=== PATIENT | female | born 1965 | race Two or more races ===

== ENCOUNTER 2020-07-30 22:58 | Inpatient (IN) | payer OTHER ==
[~2020-07-30] VITALS: Ht 162.6 cm; Wt 98.3 kg
[2020-07-31 06:18] LABS: Basophils # (auto) 0 10 ^3/uL (0-0.2); Basophils % (auto) 0.2 % (0.0-2.0); Eosinophils # (auto) 0 10 ^3/uL (0-0.8); Hematocrit 43.2 % (36.0-46.0); Hemoglobin 14.3 g/dL (12.2-16.2); Lymphocytes # (auto) 0.9 10 ^3/uL (0.4-5.4); Lymphocytes % (auto) 17.7 % (10.0-50.0); Mean Corpuscular Hemoglobin 27.8 pg (28.0-32.0); Mean Corpuscular Hgb Conc. 33.2 g/dL (32.0-36.0); Mean Corpuscular Volume 83.9 fL (80.0-100.0); Monocytes # (auto) 0.4 10 ^3/uL (0-1.3); Monocytes % (auto) 8.2 % (0.0-12.0); Neutrophils # (auto) 3.7 10 ^3/uL (1.6-8.6); Neutrophils % (auto) 73.9 % (37.0-80.0); Platelet Count (auto) 273 10^3/uL (140-450); Red Blood Cells 5.15 10^6/uL (4.0-5.20); Red Cell Distribution Width 14.8 % (11.8-14.3); White Blood Cell 5.1 10^3/uL (4.4-10.8)
[2020-07-31 06:39] LABS: Chloride 108 mmol/L (98-107); Potassium 3.3 mmol/L (3.5-5.1); Sodium 138 mmol/L (136-145)
[2020-07-31 06:49] LABS: Alanine Aminotransferase 29 U/L (13-56); Albumin 2.8 g/dL (3.4-5.0); Alkaline Phosphatase 88 U/L (45-117); Anion Gap 7 (5-15); Aspartate Aminotransferase 40 U/L (15-37); BUN/Creatinine Ratio 22.2; Bilirubin, Total 0.4 mg/dL (0.2-1.0); Blood Urea Nitrogen 14 mg/dL (7-18); Calcium 8.8 mg/dL (8.5-10.1); Carbon Dioxide 23 mmol/L (21-32); GFR African American 125 mL/min; GFR Non-African American 104 mL/min; Glucose 143 mg/dL (74-106); Total Protein 8.1 g/dL (6.4-8.2)
[2020-07-31] MEDS ORDERED: DOXYCYCLINE 100MG/250ML 250 ML IV ONE (07:30)
[2020-07-31] MEDS ORDERED: DEXTROSE (50%) 50ML SYRG IV PRN (09:30)
[2020-07-31] MEDS ORDERED: NITROGLYCERIN 0.4 MG SL TAB SL PRN (09:30)
[2020-07-31] MEDS ORDERED: MORPHINE SULF INJ 2 MG/ML SYRINGE 1ML IV PRN ×2 (09:30)
[2020-07-31] MEDS ORDERED: REMDESIVIR PER PHARMACY 0 ML IV SCH (09:30)
[2020-07-31] MEDS ORDERED: POTASSIUM CHL 20 Meq TABLET PO ONE (09:45)
[2020-07-31] MEDS: BUDESONIDE (INHALATION) 180 MCG IH IN SCH ×2 (10:00→21:13)
[2020-07-31] MEDS: CHOLECALCIFEROL (VITD3) 2,000 UNIT CAP PO SCH (10:00)
[2020-07-31] MEDS: DexAMETHasone SOD PHOS 10MG/1ML VIAL INJ IV SCH (10:43)
[2020-07-31] MEDS: FUROSEMIDE 20 MG/2 ML VIAL IV SCH (10:43)
[2020-07-31] MEDS: FAMOTIDINE 20 MG TAB PO SCH (10:44)
[2020-07-31] MEDS: AZITHROMYCIN 500MG/ 250ML 250 ML IV SCH (10:44)
[2020-07-31] MEDS: ENOXAPARIN SOD 40 MG/0.4 ML SYRINGE SC SCH ×2 (10:44→23:23)
[2020-07-31] MEDS: ZINC SULFATE 220mg CAP or TAB PO SCH (10:44)
[2020-07-31] MEDS: ASCORBIC ACID 1,000 MG TAB PO SCH (10:44)
[2020-07-31 10:56] LABS: CRP High Sensitivity 14.3 mg/dL (< 0.3)
[2020-07-31] MEDS: InsuLIN REG 1unit/0.01ml Soln (100units/ml) SC SCH ×3 (11:30→23:33)
[2020-07-31] MEDS: ACCU-CHEK COMFORT CURVE STRIP VI SCH ×3 (11:30→23:23)
[2020-07-31 13:57] LABS: Urine Bacteria MANY /hpf (None Seen); Urine Blood Negative /uL (Negative); Urine Mucus FEW (None Seen); Urine Specific Gravity 1.017 (1.001-1.035); Urine WBC 4 /hpf (0 - 5)
[2020-07-31] MEDS ORDERED: REMDESIVIR 200 MG in NS 210ml LOADING DOSE ADULT IV ONE (15:00)
[2020-07-31] MEDS: ALBUTEROL SULF HFA 90MCG INH 200DOSE IN PRN (21:13)
[2020-08-01 06:57] LABS: Basophils # (auto) 0 10 ^3/uL (0-0.2); Basophils % (auto) 0.2 % (0.0-2.0); Eosinophils # (auto) 0 10 ^3/uL (0-0.8); Hematocrit 43.2 % (36.0-46.0); Hemoglobin 14.4 g/dL (12.2-16.2); Lymphocytes % (auto) 15.9 % (10.0-50.0); Mean Corpuscular Hemoglobin 27.8 pg (28.0-32.0); Mean Corpuscular Hgb Conc. 33.2 g/dL (32.0-36.0); Mean Corpuscular Volume 83.6 fL (80.0-100.0); Monocytes # (auto) 0.5 10 ^3/uL (0-1.3); Monocytes % (auto) 8.4 % (0.0-12.0); Neutrophils # (auto) 4.9 10 ^3/uL (1.6-8.6); Neutrophils % (auto) 75.5 % (37.0-80.0); Nucleated Red Blood Cells % 0.4 %; Platelet Count (auto) 325 10^3/uL (140-450); Red Blood Cells 5.17 10^6/uL (4.0-5.20); Red Cell Distribution Width 14.6 % (11.8-14.3); White Blood Cell 6.5 10^3/uL (4.4-10.8)
[2020-08-01 07:00] LABS: Albumin 2.6 g/dL (3.4-5.0); Potassium 3.9 mmol/L (3.5-5.1)
[2020-08-01] MEDS: InsuLIN REG 1unit/0.01ml Soln (100units/ml) SC SCH ×4 (07:00→22:00)
[2020-08-01 07:04] LABS: BUN/Creatinine Ratio 33.3; Bilirubin, Total 0.5 mg/dL (0.2-1.0); Total Protein 7.8 g/dL (6.4-8.2)
[2020-08-01] MEDS: ACCU-CHEK COMFORT CURVE STRIP VI SCH ×4 (07:09→22:01)
[2020-08-01] MEDS: BUDESONIDE (INHALATION) 180 MCG IH IN SCH ×2 (07:46→21:57)
[2020-08-01] MEDS: cefTRIAXone 1GM/50ML D5W 50 ML IV SCH (09:26)
[2020-08-01] MEDS: ASCORBIC ACID 1,000 MG TAB PO SCH (10:00)
[2020-08-01] MEDS: ENOXAPARIN SOD 40 MG/0.4 ML SYRINGE SC SCH ×2 (10:00→22:00)
[2020-08-01] MEDS: DexAMETHasone SOD PHOS 10MG/1ML VIAL INJ IV SCH (10:00)
[2020-08-01] MEDS: ZINC SULFATE 220mg CAP or TAB PO SCH (10:00)
[2020-08-01] MEDS: AZITHROMYCIN 500MG/ 250ML 250 ML IV SCH (10:00)
[2020-08-01] MEDS: FAMOTIDINE 20 MG TAB PO SCH (10:00)
[2020-08-01] MEDS: FUROSEMIDE 20 MG/2 ML VIAL IV SCH (10:00)
[2020-08-01] MEDS: CHOLECALCIFEROL (VITD3) 2,000 UNIT CAP PO SCH (10:00)
[2020-08-01] MEDS: REMDESIVIR 100 MG in SODIUM CHL 0.9% 250 ML IV SCH (17:55)
[2020-08-01] MEDS ORDERED: POTASSIUM CHL 20 Meq TABLET PO ONE (20:30)
[2020-08-01] MEDS ORDERED: cefTRIAXone 1GM/50ML D5W 50 ML IV ONE (20:30)
[2020-08-01 21:00] VITALS: BP 120/89
[2020-08-01] MEDS: ALBUTEROL SULF HFA 90MCG INH 200DOSE IN PRN (21:57)
[2020-08-02 04:30] VITALS: BP 112/69
[2020-08-02] MEDS: ACCU-CHEK COMFORT CURVE STRIP VI SCH ×4 (06:07→22:00)
[2020-08-02] MEDS: InsuLIN REG 1unit/0.01ml Soln (100units/ml) SC SCH ×4 (06:07→22:00)
[2020-08-02 06:20] LABS: Potassium 4.2 mmol/L (3.5-5.1)
[2020-08-02 06:46] LABS: Albumin 2.6 g/dL (3.4-5.0); BUN/Creatinine Ratio 37.3; Bilirubin, Total 0.5 mg/dL (0.2-1.0); Calcium 9.3 mg/dL (8.5-10.1); Total Protein 7.6 g/dL (6.4-8.2)
[2020-08-02] MEDS: ALBUTEROL SULF HFA 90MCG INH 200DOSE IN PRN ×2 (07:46→07:48)
[2020-08-02] MEDS: BUDESONIDE (INHALATION) 180 MCG IH IN SCH ×2 (07:48→22:00)
[2020-08-02 09:00] VITALS: BP 119/70
[2020-08-02] MEDS ORDERED: cefTRIAXone 1GM/50ML D5W 50 ML IV SCH (09:00)
[2020-08-02] MEDS: CHOLECALCIFEROL (VITD3) 2,000 UNIT CAP PO SCH (10:00)
[2020-08-02] MEDS: FAMOTIDINE 20 MG TAB PO SCH (10:00)
[2020-08-02] MEDS: AZITHROMYCIN 500MG/ 250ML 250 ML IV SCH (10:00)
[2020-08-02] MEDS: ZINC SULFATE 220mg CAP or TAB PO SCH (10:00)
[2020-08-02] MEDS: ASCORBIC ACID 1,000 MG TAB PO SCH (10:00)
[2020-08-02] MEDS: FUROSEMIDE 20 MG/2 ML VIAL IV SCH (10:00)
[2020-08-02] MEDS: ENOXAPARIN SOD 40 MG/0.4 ML SYRINGE SC SCH ×2 (11:03→22:00)
[2020-08-02] MEDS: DexAMETHasone SOD PHOS 10MG/1ML VIAL INJ IV SCH (11:04)
[2020-08-02] MEDS: cefTRIAXone 1GM/50ML D5W 50 ML IV SCH (11:04)
[2020-08-02] MEDS: POTASSIUM CHL 20 Meq TABLET PO SCH (11:05)
[2020-08-02 13:00] VITALS: BP 131/76
[2020-08-02] MEDS: REMDESIVIR 100 MG in SODIUM CHL 0.9% 250 ML IV SCH (15:00)
[2020-08-02 16:43] VITALS: BP_SYST 108
[2020-08-02 22:00] VITALS: BP 121/77
[2020-08-03 05:00] VITALS: BP 119/49
[2020-08-03] MEDS: InsuLIN REG 1unit/0.01ml Soln (100units/ml) SC SCH ×4 (05:36→21:03)
[2020-08-03] MEDS: ACCU-CHEK COMFORT CURVE STRIP VI SCH ×4 (05:37→20:57)
[2020-08-03] MEDS: ALBUTEROL SULF HFA 90MCG INH 200DOSE IN PRN (07:13)
[2020-08-03] MEDS: BUDESONIDE (INHALATION) 180 MCG IH IN SCH ×2 (07:13→20:10)
[2020-08-03 07:23] LABS: Potassium 3.8 mmol/L (3.5-5.1)
[2020-08-03 07:31] LABS: Albumin 2.5 g/dL (3.4-5.0); BUN/Creatinine Ratio 38.2; Bilirubin, Total 0.6 mg/dL (0.2-1.0); Calcium 9.3 mg/dL (8.5-10.1); Total Protein 7.2 g/dL (6.4-8.2)
[2020-08-03 09:00] VITALS: BP 116/63
[2020-08-03] MEDS: cefTRIAXone 1GM/50ML D5W 50 ML IV SCH (09:22)
[2020-08-03] MEDS: DexAMETHasone SOD PHOS 10MG/1ML VIAL INJ IV SCH (09:22)
[2020-08-03] MEDS: AZITHROMYCIN 500MG/ 250ML 250 ML IV SCH (09:23)
[2020-08-03] MEDS: FUROSEMIDE 20 MG/2 ML VIAL IV SCH (09:23)
[2020-08-03] MEDS: ZINC SULFATE 220mg CAP or TAB PO SCH (09:23)
[2020-08-03] MEDS: CHOLECALCIFEROL (VITD3) 2,000 UNIT CAP PO SCH (09:24)
[2020-08-03] MEDS: ASCORBIC ACID 1,000 MG TAB PO SCH (09:24)
[2020-08-03] MEDS: POTASSIUM CHL 20 Meq TABLET PO SCH (09:24)
[2020-08-03] MEDS: PANTOPRAZOLE 40 MG TAB PO SCH (09:24)
[2020-08-03] MEDS: ENOXAPARIN SOD 40 MG/0.4 ML SYRINGE SC SCH ×2 (09:25→21:03)
[2020-08-03] MEDS: ONDANSETRON HCL 4 MG/2 ML VIAL IV PRN (09:43)
[2020-08-03 13:00] VITALS: BP 116/65
[2020-08-03] MEDS: REMDESIVIR 100 MG in SODIUM CHL 0.9% 250 ML IV SCH (15:00)
[2020-08-03 17:00] VITALS: BP 130/76
[2020-08-03 20:00] VITALS: BP 131/73
[2020-08-04] VITALS (9 sets, daily range): BP systolic 105–149; BP diastolic 60–78
[2020-08-04] MEDS: ALBUTEROL SULF HFA 90MCG INH 200DOSE IN PRN (01:15)
[2020-08-04] MEDS: ACCU-CHEK COMFORT CURVE STRIP VI SCH ×4 (06:29→22:19)
[2020-08-04] MEDS: InsuLIN REG 1unit/0.01ml Soln (100units/ml) SC SCH ×4 (06:35→22:42)
[2020-08-04] MEDS: BUDESONIDE (INHALATION) 180 MCG IH IN SCH ×2 (07:35→22:00)
[2020-08-04] MEDS: DexAMETHasone SOD PHOS 10MG/1ML VIAL INJ IV SCH (09:44)
[2020-08-04] MEDS: cefTRIAXone 1GM/50ML D5W 50 ML IV SCH (09:44)
[2020-08-04] MEDS: ZINC SULFATE 220mg CAP or TAB PO SCH (09:45)
[2020-08-04] MEDS: FUROSEMIDE 20 MG/2 ML VIAL IV SCH (09:45)
[2020-08-04] MEDS: AZITHROMYCIN 500MG/ 250ML 250 ML IV SCH (09:45)
[2020-08-04] MEDS: PANTOPRAZOLE 40 MG TAB PO SCH (09:46)
[2020-08-04] MEDS: POTASSIUM CHL 20 Meq TABLET PO SCH (09:46)
[2020-08-04] MEDS: ASCORBIC ACID 1,000 MG TAB PO SCH (09:46)
[2020-08-04] MEDS: ENOXAPARIN SOD 40 MG/0.4 ML SYRINGE SC SCH ×2 (09:46→22:21)
[2020-08-04] MEDS: CHOLECALCIFEROL (VITD3) 2,000 UNIT CAP PO SCH (09:46)
[2020-08-04] MEDS: ONDANSETRON HCL 4 MG/2 ML VIAL IV PRN (11:00)
[2020-08-04 14:08] LABS: Potassium 3.6 mmol/L (3.5-5.1)
[2020-08-04 14:15] LABS: Albumin 2.8 g/dL (3.4-5.0); Bilirubin, Total 0.6 mg/dL (0.2-1.0); Calcium 8.9 mg/dL (8.5-10.1); Total Protein 7.7 g/dL (6.4-8.2)
[2020-08-04] MEDS: REMDESIVIR 100 MG in SODIUM CHL 0.9% 250 ML IV SCH (15:08)
[2020-08-05 05:00] VITALS: BP 113/64
[2020-08-05] MEDS: ACCU-CHEK COMFORT CURVE STRIP VI SCH ×4 (05:55→22:03)
[2020-08-05] MEDS: ACETAMINOPHEN 500 MG TAB PO PRN ×3 (05:59→23:37)
[2020-08-05] MEDS: InsuLIN REG 1unit/0.01ml Soln (100units/ml) SC SCH ×4 (06:16→22:03)
[2020-08-05 07:39] LABS: Potassium 3.8 mmol/L (3.5-5.1)
[2020-08-05 07:45] LABS: Albumin 2.5 g/dL (3.4-5.0); Bilirubin, Total 0.7 mg/dL (0.2-1.0); Calcium 9.1 mg/dL (8.5-10.1); Total Protein 7.3 g/dL (6.4-8.2)
[2020-08-05 09:00] VITALS: BP 104/49
[2020-08-05] MEDS: BUDESONIDE (INHALATION) 180 MCG IH IN SCH ×2 (09:15→21:40)
[2020-08-05] MEDS: DexAMETHasone SOD PHOS 10MG/1ML VIAL INJ IV SCH (09:36)
[2020-08-05] MEDS: cefTRIAXone 1GM/50ML D5W 50 ML IV SCH (09:36)
[2020-08-05] MEDS: AZITHROMYCIN 500MG/ 250ML 250 ML IV SCH (09:40)
[2020-08-05] MEDS: FUROSEMIDE 20 MG/2 ML VIAL IV SCH (09:40)
[2020-08-05] MEDS: ZINC SULFATE 220mg CAP or TAB PO SCH (09:41)
[2020-08-05] MEDS: ASCORBIC ACID 1,000 MG TAB PO SCH (09:41)
[2020-08-05] MEDS: ENOXAPARIN SOD 40 MG/0.4 ML SYRINGE SC SCH ×2 (09:41→21:49)
[2020-08-05] MEDS: POTASSIUM CHL 20 Meq TABLET PO SCH (09:41)
[2020-08-05] MEDS: CHOLECALCIFEROL (VITD3) 2,000 UNIT CAP PO SCH (09:41)
[2020-08-05] MEDS: PANTOPRAZOLE 40 MG TAB PO SCH (09:41)
[2020-08-05 13:38] VITALS: BP 119/72
[2020-08-05 17:00] VITALS: BP 109/64
[2020-08-05 21:43] VITALS: BP 117/63
[2020-08-06] MEDS ORDERED: traMADol HCL 50 MG TAB PO ONE (02:45)
[2020-08-06] MEDS ORDERED: REMDESIVIR PER PHARMACY 0 ML IV SCH (03:30)
[2020-08-06 04:46] VITALS: BP 111/59
[2020-08-06] MEDS: ACCU-CHEK COMFORT CURVE STRIP VI SCH ×3 (06:10→17:42)
[2020-08-06] MEDS: InsuLIN REG 1unit/0.01ml Soln (100units/ml) SC SCH ×3 (06:10→17:43)
[2020-08-06 06:25] LABS: Urine Bacteria FEW /hpf (None Seen); Urine Blood Negative /uL (Negative); Urine Budding Yeast FEW /hpf (None Seen); Urine Mucus FEW (None Seen); Urine Specific Gravity 1.034 (1.001-1.035); Urine WBC 3 /hpf (0 - 5)
[2020-08-06 06:57] LABS: Basophils # (auto) 0 10 ^3/uL (0-0.2); Basophils % (auto) 0.2 % (0.0-2.0); Eosinophils # (auto) 0.1 10 ^3/uL (0-0.8); Eosinophils % (auto) 0.4 % (0.0-7.0); Hematocrit 44.9 % (36.0-46.0); Hemoglobin 14.8 g/dL (12.2-16.2); Lymphocytes # (auto) 0.9 10 ^3/uL (0.4-5.4); Lymphocytes % (auto) 7.4 % (10.0-50.0); Mean Corpuscular Hemoglobin 27.4 pg (28.0-32.0); Mean Corpuscular Hgb Conc. 32.9 g/dL (32.0-36.0); Mean Corpuscular Volume 83.4 fL (80.0-100.0); Monocytes # (auto) 0.3 10 ^3/uL (0-1.3); Monocytes % (auto) 2.6 % (0.0-12.0); Neutrophils % (auto) 89.4 % (37.0-80.0); Platelet Count (auto) 413 10^3/uL (140-450); Red Blood Cells 5.39 10^6/uL (4.0-5.20); Red Cell Distribution Width 14.6 % (11.8-14.3); White Blood Cell 12.3 10^3/uL (4.4-10.8)
[2020-08-06 07:25] LABS: Potassium 3.9 mmol/L (3.5-5.1)
[2020-08-06 07:40] LABS: BUN/Creatinine Ratio 29.2; Calcium 9.5 mg/dL (8.5-10.1); Magnesium 2.8 mg/dL (1.6-2.6)
[2020-08-06] MEDS: cefTRIAXone 1GM/50ML D5W 50 ML IV SCH (08:13)
[2020-08-06 08:53] VITALS: BP 123/70
[2020-08-06] MEDS: DexAMETHasone SOD PHOS 10MG/1ML VIAL INJ IV SCH ×2 (09:01→22:51)
[2020-08-06] MEDS: ZINC SULFATE 220mg CAP or TAB PO SCH (09:03)
[2020-08-06] MEDS: ASCORBIC ACID 1,000 MG TAB PO SCH (09:04)
[2020-08-06] MEDS: PANTOPRAZOLE 40 MG TAB PO SCH (09:04)
[2020-08-06] MEDS: POTASSIUM CHL 20 Meq TABLET PO SCH ×2 (09:04→22:51)
[2020-08-06] MEDS: ENOXAPARIN SOD 40 MG/0.4 ML SYRINGE SC SCH (09:05)
[2020-08-06] MEDS: CHOLECALCIFEROL (VITD3) 2,000 UNIT CAP PO SCH (09:05)
[2020-08-06] MEDS: ACETAMINOPHEN 500 MG TAB PO PRN (09:36)
[2020-08-06] MEDS ORDERED: FUROSEMIDE 20 MG/2 ML VIAL IV SCH (10:00)
[2020-08-06 13:00] VITALS: BP 120/77
[2020-08-06] MEDS ORDERED: DEXTROSE (50%) 50ML SYRG IV PRN (16:15)
[2020-08-06 17:00] VITALS: BP 119/68
[2020-08-06] MEDS: PIPERACILLIN-TAZOB 3.375GM 100 ML IV SCH (17:42)
[2020-08-06] MEDS: BUDESONIDE (INHALATION) 180 MCG IH IN SCH (19:30)
[2020-08-06] MEDS ORDERED: diphenhdrAMINE HCL 50 MG/1 ML VL IV ONE (20:00)
[2020-08-06] MEDS ORDERED: methylPREDNISolone SOD SUCC 40 MG/ML VL IV ONE (20:00)
[2020-08-06] MEDS ORDERED: ACETAMINOPHEN 650 mg PER 20.3 mL UD PO ONE (20:00)
[2020-08-06] MEDS ORDERED: TOCILIZUMAB 400 MG in SODIUM CHL 0.9% 80 ML IV ONE (20:30)
[2020-08-06 22:00] VITALS: BP 97/61
[2020-08-06] MEDS: FUROSEMIDE 20 MG/2 ML VIAL IV SCH (22:00)
[2020-08-06] MEDS: ENOXAPARIN SOD 100 MG/1 ML SYRINGE SC SCH (22:51)
[2020-08-07] MEDS: PIPERACILLIN-TAZOB 3.375GM 100 ML IV SCH ×5 (00:01→23:53)
[2020-08-07] MEDS: InsuLIN REG 1unit/0.01ml Soln (100units/ml) SC SCH ×5 (00:02→23:56)
[2020-08-07 05:00] VITALS: BP 115/73
[2020-08-07] MEDS: ACCU-CHEK COMFORT CURVE STRIP VI SCH ×5 (06:00→23:54)
[2020-08-07 07:57] LABS: Basophils # (auto) 0 10 ^3/uL (0-0.2); Basophils % (auto) 0.2 % (0.0-2.0); Eosinophils # (auto) 0 10 ^3/uL (0-0.8); Hematocrit 42.4 % (36.0-46.0); Hemoglobin 14.4 g/dL (12.2-16.2); Lymphocytes # (auto) 0.3 10 ^3/uL (0.4-5.4); Lymphocytes % (auto) 3.7 % (10.0-50.0); Mean Corpuscular Hemoglobin 28.4 pg (28.0-32.0); Mean Corpuscular Hgb Conc. 33.9 g/dL (32.0-36.0); Mean Corpuscular Volume 83.8 fL (80.0-100.0); Monocytes # (auto) 0.2 10 ^3/uL (0-1.3); Monocytes % (auto) 2.5 % (0.0-12.0); Neutrophils # (auto) 7.5 10 ^3/uL (1.6-8.6); Neutrophils % (auto) 93.6 % (37.0-80.0); Platelet Count (auto) 376 10^3/uL (140-450); Red Blood Cells 5.05 10^6/uL (4.0-5.20); Red Cell Distribution Width 14.8 % (11.8-14.3)
[2020-08-07 08:00] VITALS: BP 95/56
[2020-08-07 08:17] LABS: Potassium 4.3 mmol/L (3.5-5.1)
[2020-08-07 08:54] LABS: Albumin 2.3 g/dL (3.4-5.0); BUN/Creatinine Ratio 31.3; Bilirubin, Total 0.6 mg/dL (0.2-1.0); CRP High Sensitivity 9.56 mg/dL (< 0.3); Calcium 9.2 mg/dL (8.5-10.1); Magnesium 2.8 mg/dL (1.6-2.6); Total Protein 7.1 g/dL (6.4-8.2)
[2020-08-07 08:59] LABS: INR 1.1 (0.9-1.15)
[2020-08-07 09:00] VITALS: BP 98/56
[2020-08-07] MEDS ORDERED: methylPREDNISolone SOD SUCC 40 MG/ML VL IV ONE (09:00)
[2020-08-07] MEDS ORDERED: diphenhdrAMINE HCL 50 MG/1 ML VL IV ONE (09:00)
[2020-08-07] MEDS ORDERED: ACETAMINOPHEN 650 mg PER 20.3 mL UD PO ONE (09:00)
[2020-08-07] MEDS ORDERED: TOCILIZUMAB 400 MG in SODIUM CHL 0.9% 80 ML IV ONE (09:30)
[2020-08-07] MEDS: BUDESONIDE (INHALATION) 180 MCG IH IN SCH ×2 (10:00→23:34)
[2020-08-07] MEDS: FUROSEMIDE 20 MG/2 ML VIAL IV SCH ×2 (10:00→22:41)
[2020-08-07] MEDS: DexAMETHasone SOD PHOS 10MG/1ML VIAL INJ IV SCH ×2 (11:06→22:28)
[2020-08-07] MEDS: ZINC SULFATE 220mg CAP or TAB PO SCH (11:12)
[2020-08-07] MEDS: POTASSIUM CHL 20 Meq TABLET PO SCH ×2 (11:13→22:29)
[2020-08-07] MEDS: ASCORBIC ACID 1,000 MG TAB PO SCH (11:13)
[2020-08-07] MEDS: PANTOPRAZOLE 40 MG TAB PO SCH (11:13)
[2020-08-07] MEDS: ENOXAPARIN SOD 100 MG/1 ML SYRINGE SC SCH ×2 (11:14→22:29)
[2020-08-07] MEDS: CHOLECALCIFEROL (VITD3) 2,000 UNIT CAP PO SCH (11:14)
[2020-08-07 13:00] VITALS: BP 106/72
[2020-08-07] MEDS ORDERED: PPN PER PHARMACY 0 ML IV SCH (14:15)
[2020-08-07 17:00] VITALS: BP 114/81
[2020-08-07 22:00] VITALS: BP 111/77
[2020-08-07] MEDS ORDERED: TEMAZEPAM 15 MG CAP PO ONE (22:00)
[2020-08-07] MEDS: AMINO ACID INFUSION IN D10W 1,000 ML IV NR (22:28)
[2020-08-08] VITALS (7 sets, daily range): BP systolic 104–136; BP diastolic 63–94
[2020-08-08] MEDS: ACCU-CHEK COMFORT CURVE STRIP VI SCH ×4 (05:34→23:58)
[2020-08-08] MEDS: PIPERACILLIN-TAZOB 3.375GM 100 ML IV SCH ×4 (05:34→23:58)
[2020-08-08] MEDS: InsuLIN REG 1unit/0.01ml Soln (100units/ml) SC SCH ×3 (06:36→17:21)
[2020-08-08 07:40] LABS: Potassium 4.2 mmol/L (3.5-5.1)
[2020-08-08 07:57] LABS: Albumin 2.4 g/dL (3.4-5.0); BUN/Creatinine Ratio 31.4; Bilirubin, Total 0.4 mg/dL (0.2-1.0); Calcium 9.3 mg/dL (8.5-10.1); Magnesium 2.8 mg/dL (1.6-2.6); Phosphorus 3.6 mg/dL (2.5-4.90); Pre Albumin 22.3 mg/dL (20.0-40.0); Total Protein 7.3 g/dL (6.4-8.2)
[2020-08-08] MEDS: FUROSEMIDE 20 MG/2 ML VIAL IV SCH (10:49)
[2020-08-08] MEDS: ZINC SULFATE 220mg CAP or TAB PO SCH (10:49)
[2020-08-08] MEDS: POTASSIUM CHL 20 Meq TABLET PO SCH ×2 (10:50→21:54)
[2020-08-08] MEDS: ASCORBIC ACID 1,000 MG TAB PO SCH (10:50)
[2020-08-08] MEDS: PANTOPRAZOLE 40 MG TAB PO SCH (10:50)
[2020-08-08] MEDS: CHOLECALCIFEROL (VITD3) 2,000 UNIT CAP PO SCH (10:50)
[2020-08-08] MEDS: DexAMETHasone SOD PHOS 10MG/1ML VIAL INJ IV SCH ×2 (10:50→21:53)
[2020-08-08] MEDS: BUDESONIDE (INHALATION) 180 MCG IH IN SCH ×2 (10:51→19:20)
[2020-08-08] MEDS: ENOXAPARIN SOD 100 MG/1 ML SYRINGE SC SCH (10:51)
[2020-08-08] MEDS: AMINO ACID INFUSION IN D10W 1,000 ML IV NR (19:58)
[2020-08-08] MEDS ORDERED: PPN PER PHARMACY IV NR ×10 (20:00)
[2020-08-08] MEDS: ALBUTEROL SULF HFA 90MCG INH 200DOSE IN PRN (20:05)
[2020-08-08] MEDS: FUROSEMIDE 40 MG/4 ML VIAL IV SCH (21:54)
[2020-08-08] MEDS: ENOXAPARIN SOD 40 MG/0.4 ML SYRINGE SC SCH (21:54)
[2020-08-09] MEDS: InsuLIN REG 1unit/0.01ml Soln (100units/ml) SC SCH ×5 (00:02→22:54)
[2020-08-09 05:03] VITALS: BP 115/73
[2020-08-09] MEDS: ONDANSETRON HCL 4 MG/2 ML VIAL IV PRN (05:11)
[2020-08-09] MEDS: ACCU-CHEK COMFORT CURVE STRIP VI SCH ×4 (06:00→22:58)
[2020-08-09] MEDS: FUROSEMIDE 40 MG/4 ML VIAL IV SCH ×2 (06:41→18:14)
[2020-08-09] MEDS: PIPERACILLIN-TAZOB 3.375GM 100 ML IV SCH ×4 (06:42→22:53)
[2020-08-09 08:55] LABS: Albumin 2.8 g/dL (3.4-5.0); BUN/Creatinine Ratio 31.9; Bilirubin, Total 0.5 mg/dL (0.2-1.0); Calcium 9.2 mg/dL (8.5-10.1); Magnesium 2.6 mg/dL (1.6-2.6); Phosphorus 4.2 mg/dL (2.5-4.90); Total Protein 7.9 g/dL (6.4-8.2)
[2020-08-09 09:00] VITALS: BP 118/73
[2020-08-09] MEDS: DexAMETHasone SOD PHOS 10MG/1ML VIAL INJ IV SCH (09:54)
[2020-08-09] MEDS: HYDROcodone-ACET 5/325MG TAB PO PRN ×3 (09:55→23:19)
[2020-08-09] MEDS: ENOXAPARIN SOD 40 MG/0.4 ML SYRINGE SC SCH ×2 (09:55→22:52)
[2020-08-09] MEDS: ZINC SULFATE 220mg CAP or TAB PO SCH (09:56)
[2020-08-09] MEDS: ASCORBIC ACID 1,000 MG TAB PO SCH (09:56)
[2020-08-09] MEDS: POTASSIUM CHL 20 Meq TABLET PO SCH ×2 (09:56→22:52)
[2020-08-09] MEDS: CHOLECALCIFEROL (VITD3) 2,000 UNIT CAP PO SCH (09:56)
[2020-08-09] MEDS: BUDESONIDE (INHALATION) 180 MCG IH IN SCH ×3 (10:00→19:18)
[2020-08-09] MEDS: ALBUTEROL SULF HFA 90MCG INH 200DOSE IN PRN (10:02)
[2020-08-09] MEDS ORDERED: PANTOPRAZOLE 40 MG/10 ML VIAL INJ IV ONE (12:45)
[2020-08-09 13:00] VITALS: BP 126/64
[2020-08-09 13:21] LABS: Amylase 70 U/L (25-115); Lipase 118 U/L (73-393)
[2020-08-09 17:00] VITALS: BP 119/77
[2020-08-09] MEDS ORDERED: PPN PER PHARMACY IV NR ×9 (20:00)
[2020-08-09] MEDS: PANTOPRAZOLE 40 MG/10 ML VIAL INJ IV SCH (22:52)
[2020-08-10] VITALS: BP 116/76
[2020-08-10] MEDS: ACCU-CHEK COMFORT CURVE STRIP VI SCH ×4 (06:00→22:37)
[2020-08-10] MEDS: InsuLIN REG 1unit/0.01ml Soln (100units/ml) SC SCH ×4 (06:03→22:54)
[2020-08-10] MEDS: PIPERACILLIN-TAZOB 3.375GM 100 ML IV SCH ×4 (06:41→22:49)
[2020-08-10] MEDS: FUROSEMIDE 40 MG/4 ML VIAL IV SCH ×2 (06:41→18:26)
[2020-08-10 06:58] LABS: Potassium 3.8 mmol/L (3.5-5.1)
[2020-08-10 07:26] LABS: Albumin 2.7 g/dL (3.4-5.0); BUN/Creatinine Ratio 40.6; Bilirubin, Total 0.6 mg/dL (0.2-1.0); Magnesium 2.5 mg/dL (1.6-2.6); Phosphorus 4.2 mg/dL (2.5-4.90); Total Protein 7.1 g/dL (6.4-8.2)
[2020-08-10 08:00] VITALS: BP 147/94
[2020-08-10] MEDS: DexAMETHasone SOD PHOS 10MG/1ML VIAL INJ IV SCH (09:27)
[2020-08-10] MEDS: PANTOPRAZOLE 40 MG/10 ML VIAL INJ IV SCH ×2 (09:27→22:48)
[2020-08-10] MEDS: HYDROcodone-ACET 5/325MG TAB PO PRN ×2 (09:28→23:13)
[2020-08-10] MEDS: ENOXAPARIN SOD 40 MG/0.4 ML SYRINGE SC SCH ×2 (09:40→22:48)
[2020-08-10] MEDS: POTASSIUM CHL 20 Meq TABLET PO SCH ×3 (09:49→23:23)
[2020-08-10] MEDS: ZINC SULFATE 220mg CAP or TAB PO SCH (09:49)
[2020-08-10] MEDS: CHOLECALCIFEROL (VITD3) 2,000 UNIT CAP PO SCH (09:49)
[2020-08-10] MEDS: ASCORBIC ACID 1,000 MG TAB PO SCH (09:49)
[2020-08-10] MEDS: BUDESONIDE (INHALATION) 180 MCG IH IN SCH ×2 (10:18→23:14)
[2020-08-10] MEDS: ALBUTEROL SULF HFA 90MCG INH 200DOSE IN PRN (10:18)
[2020-08-10] MEDS ORDERED: DEXTROSE (50%) 50ML SYRG IV SCH (12:00)
[2020-08-10 14:53] VITALS: BP 126/85
[2020-08-10 16:00] VITALS: BP 133/88
[2020-08-10] MEDS ORDERED: PPN PER PHARMACY IV NR ×9 (20:00)
[2020-08-10 22:00] VITALS: BP 115/69
[2020-08-11] MEDS: ACCU-CHEK COMFORT CURVE STRIP VI SCH ×4 (05:56→23:18)
[2020-08-11] MEDS: PIPERACILLIN-TAZOB 3.375GM 100 ML IV SCH ×2 (06:29→11:46)
[2020-08-11] MEDS: FUROSEMIDE 40 MG/4 ML VIAL IV SCH ×2 (06:29→18:00)
[2020-08-11] MEDS: InsuLIN REG 1unit/0.01ml Soln (100units/ml) SC SCH ×4 (06:38→23:44)
[2020-08-11 08:25] VITALS: BP 126/77
[2020-08-11 09:18] VITALS: BP 136/83
[2020-08-11 09:48] LABS: Albumin 2.8 g/dL (3.4-5.0); Calcium 9.3 mg/dL (8.5-10.1); Magnesium 2.5 mg/dL (1.6-2.6); Potassium 3.3 mmol/L (3.5-5.1)
[2020-08-11 09:51] LABS: BUN/Creatinine Ratio 41.6; Bilirubin, Total 0.8 mg/dL (0.2-1.0); Phosphorus 4.4 mg/dL (2.5-4.90); Total Protein 7.2 g/dL (6.4-8.2)
[2020-08-11] MEDS: ZINC SULFATE 220mg CAP or TAB PO SCH (10:00)
[2020-08-11] MEDS: BUDESONIDE (INHALATION) 180 MCG IH IN SCH ×2 (10:00→20:01)
[2020-08-11] MEDS: ASCORBIC ACID 1,000 MG TAB PO SCH (10:00)
[2020-08-11] MEDS: CHOLECALCIFEROL (VITD3) 2,000 UNIT CAP PO SCH (10:00)
[2020-08-11] MEDS: POTASSIUM CHL 20 Meq TABLET PO SCH ×2 (10:00→23:19)
[2020-08-11] MEDS: DexAMETHasone SOD PHOS 10MG/1ML VIAL INJ IV SCH (11:45)
[2020-08-11] MEDS: PANTOPRAZOLE 40 MG/10 ML VIAL INJ IV SCH ×2 (11:45→23:19)
[2020-08-11] MEDS: ONDANSETRON HCL 4 MG/2 ML VIAL IV PRN (11:46)
[2020-08-11] MEDS: ENOXAPARIN SOD 40 MG/0.4 ML SYRINGE SC SCH ×2 (11:46→23:20)
[2020-08-11] MEDS: HYDROcodone-ACET 5/325MG TAB PO PRN ×2 (12:05→19:51)
[2020-08-11 13:00] VITALS: BP 105/70
[2020-08-11 16:23] VITALS: BP 110/74
[2020-08-11] MEDS: POTASSIUM CHL 20MEQ/100ML 100 ML IV SCH ×2 (19:25→23:19)
[2020-08-11] MEDS ORDERED: PPN PER PHARMACY IV NR ×8 (20:00)
[2020-08-11] MEDS: ALBUTEROL SULF HFA 90MCG INH 200DOSE IN PRN (20:02)
[2020-08-12] VITALS: BP 107/68
[2020-08-12] MEDS: ACCU-CHEK COMFORT CURVE STRIP VI SCH ×4 (06:07→22:15)
[2020-08-12] MEDS: BUDESONIDE (INHALATION) 180 MCG IH IN SCH ×2 (06:18→18:52)
[2020-08-12] MEDS: ALBUTEROL SULF HFA 90MCG INH 200DOSE IN PRN ×2 (06:18→18:52)
[2020-08-12] MEDS: InsuLIN REG 1unit/0.01ml Soln (100units/ml) SC SCH ×3 (06:48→22:16)
[2020-08-12] MEDS: FUROSEMIDE 40 MG/4 ML VIAL IV SCH (06:49)
[2020-08-12 09:00] VITALS: BP 101/67
[2020-08-12 09:16] LABS: Potassium 4.2 mmol/L (3.5-5.1)
[2020-08-12 09:22] LABS: Albumin 2.7 g/dL (3.4-5.0); BUN/Creatinine Ratio 53.1; Calcium 8.8 mg/dL (8.5-10.1); Magnesium 2.4 mg/dL (1.6-2.6)
[2020-08-12 09:25] LABS: Bilirubin, Total 0.5 mg/dL (0.2-1.0); Phosphorus 2.2 mg/dL (2.5-4.90); Total Protein 6.5 g/dL (6.4-8.2)
[2020-08-12 09:28] LABS: Pre Albumin 29.2 mg/dL (20.0-40.0)
[2020-08-12] MEDS: POTASSIUM CHL 20 Meq TABLET PO SCH (10:00)
[2020-08-12] MEDS: CHOLECALCIFEROL (VITD3) 2,000 UNIT CAP PO SCH (10:00)
[2020-08-12] MEDS: ASCORBIC ACID 1,000 MG TAB PO SCH (10:00)
[2020-08-12] MEDS: ZINC SULFATE 220mg CAP or TAB PO SCH (10:00)
[2020-08-12] MEDS ORDERED: SODIUM PHOSP 20MEQ(15MMOL) IN NS 100 ML IV ONE (10:30)
[2020-08-12] MEDS: HYDROcodone-ACET 5/325MG TAB PO PRN (12:00)
[2020-08-12] MEDS: DexAMETHasone SOD PHOS 10MG/1ML VIAL INJ IV SCH (12:00)
[2020-08-12] MEDS: ENOXAPARIN SOD 40 MG/0.4 ML SYRINGE SC SCH ×2 (12:01→22:15)
[2020-08-12] MEDS: PANTOPRAZOLE 40 MG/10 ML VIAL INJ IV SCH ×2 (12:01→22:15)
[2020-08-12] MEDS: Glucerna Carbsteady SHAKE Vanilla 8oz PO SCH ×2 (14:30→22:00)
[2020-08-12] MEDS ORDERED: DEXTROSE (50%) 50ML SYRG IV PRN (14:45)
[2020-08-12 16:00] VITALS: BP 112/68
[2020-08-12] MEDS: DOXYCYCLINE 100 MG TAB/CAP PO SCH ×2 (16:20→22:15)
[2020-08-12] MEDS: cefTRIAXone 1GM/50ML D5W 50 ML IV SCH (16:24)
[2020-08-12] MEDS ORDERED: Glucerna Carbsteady SHAKE Vanilla 8oz PO SCH (18:00)
[2020-08-12] MEDS ORDERED: PPN PER PHARMACY IV NR ×9 (20:00)
[2020-08-13] MEDS: HYDROcodone-ACET 5/325MG TAB PO PRN (03:25)
[2020-08-13] MEDS: Glucerna Carbsteady SHAKE Vanilla 8oz PO SCH ×3 (06:00→22:00)
[2020-08-13] MEDS: InsuLIN REG 1unit/0.01ml Soln (100units/ml) SC SCH ×4 (06:50→22:31)
[2020-08-13] MEDS: ACCU-CHEK COMFORT CURVE STRIP VI SCH ×4 (06:50→22:29)
[2020-08-13 08:46] LABS: Basophils # (auto) 0 10 ^3/uL (0-0.2); Basophils % (auto) 0.2 % (0.0-2.0); Eosinophils # (auto) 0.2 10 ^3/uL (0-0.8); Eosinophils % (auto) 1.8 % (0.0-7.0); Hemoglobin 15.8 g/dL (12.2-16.2); Lymphocytes # (auto) 0.9 10 ^3/uL (0.4-5.4); Lymphocytes % (auto) 8.5 % (10.0-50.0); Mean Corpuscular Hemoglobin 27.5 pg (28.0-32.0); Mean Corpuscular Hgb Conc. 32.8 g/dL (32.0-36.0); Mean Corpuscular Volume 83.9 fL (80.0-100.0); Monocytes # (auto) 0.4 10 ^3/uL (0-1.3); Monocytes % (auto) 3.4 % (0.0-12.0); Neutrophils # (auto) 9.4 10 ^3/uL (1.6-8.6); Neutrophils % (auto) 86.1 % (37.0-80.0); Nucleated Red Blood Cells % 0.1 %; Platelet Count (auto) 292 10^3/uL (140-450); Red Blood Cells 5.73 10^6/uL (4.0-5.20); Red Cell Distribution Width 14.7 % (11.8-14.3)
[2020-08-13 09:21] LABS: BUN/Creatinine Ratio 48.7; Calcium 9.1 mg/dL (8.5-10.1); Potassium 4.1 mmol/L (3.5-5.1)
[2020-08-13] MEDS: BUDESONIDE (INHALATION) 180 MCG IH IN SCH ×2 (10:00→21:43)
[2020-08-13] MEDS: cefTRIAXone 1GM/50ML D5W 50 ML IV SCH (10:02)
[2020-08-13] MEDS: DexAMETHasone SOD PHOS 10MG/1ML VIAL INJ IV SCH (10:03)
[2020-08-13] MEDS: ZINC SULFATE 220mg CAP or TAB PO SCH (10:03)
[2020-08-13] MEDS: PANTOPRAZOLE 40 MG/10 ML VIAL INJ IV SCH ×2 (10:03→21:41)
[2020-08-13] MEDS: DOXYCYCLINE 100 MG TAB/CAP PO SCH ×2 (10:03→21:41)
[2020-08-13] MEDS: FUROSEMIDE 40 MG/4 ML VIAL IV SCH (10:03)
[2020-08-13] MEDS: POTASSIUM CHL 20 Meq TABLET PO SCH (10:04)
[2020-08-13] MEDS: ENOXAPARIN SOD 40 MG/0.4 ML SYRINGE SC SCH ×2 (10:04→21:41)
[2020-08-13] MEDS: ASCORBIC ACID 1,000 MG TAB PO SCH (10:04)
[2020-08-13] MEDS: CHOLECALCIFEROL (VITD3) 2,000 UNIT CAP PO SCH (10:04)
[2020-08-13] MEDS: ALBUTEROL SULF HFA 90MCG INH 200DOSE IN PRN (10:50)
[2020-08-13] MEDS: ONDANSETRON HCL 4 MG/2 ML VIAL IV PRN (11:19)
[2020-08-13] MEDS: ERGOCALCIFEROL 50,000 UNIT(1.25MG) CAP PO SCH (17:50)
[2020-08-13] MEDS ORDERED: TEMAZEPAM 15 MG CAP PO ONE (23:00)
[2020-08-14] VITALS: BP 129/74
[2020-08-14] MEDS: ONDANSETRON HCL 4 MG/2 ML VIAL IV PRN (03:36)
[2020-08-14] MEDS: Glucerna Carbsteady SHAKE Vanilla 8oz PO SCH ×3 (05:38→21:35)
[2020-08-14] MEDS: ACCU-CHEK COMFORT CURVE STRIP VI SCH ×4 (06:07→21:35)
[2020-08-14] MEDS: InsuLIN REG 1unit/0.01ml Soln (100units/ml) SC SCH ×4 (06:28→21:40)
[2020-08-14 06:58] LABS: Basophils # (auto) 0 10 ^3/uL (0-0.2); Basophils % (auto) 0.2 % (0.0-2.0); Eosinophils # (auto) 0.3 10 ^3/uL (0-0.8); Eosinophils % (auto) 2.5 % (0.0-7.0); Hemoglobin 15.7 g/dL (12.2-16.2); Lymphocytes # (auto) 1.1 10 ^3/uL (0.4-5.4); Lymphocytes % (auto) 8.2 % (10.0-50.0); Mean Corpuscular Hemoglobin 27.7 pg (28.0-32.0); Mean Corpuscular Hgb Conc. 33.3 g/dL (32.0-36.0); Mean Corpuscular Volume 83.2 fL (80.0-100.0); Monocytes # (auto) 0 10 ^3/uL (0-1.3); Monocytes % (auto) 0.2 % (0.0-12.0); Neutrophils # (auto) 12.2 10 ^3/uL (1.6-8.6); Neutrophils % (auto) 88.9 % (37.0-80.0); Nucleated Red Blood Cells % 0.7 %; Platelet Count (auto) 286 10^3/uL (140-450); Red Blood Cells 5.65 10^6/uL (4.0-5.20); Red Cell Distribution Width 14.7 % (11.8-14.3); White Blood Cell 13.8 10^3/uL (4.4-10.8)
[2020-08-14] MEDS: BUDESONIDE (INHALATION) 180 MCG IH IN SCH ×3 (07:42→20:18)
[2020-08-14] MEDS: ALBUTEROL SULF HFA 90MCG INH 200DOSE IN PRN ×2 (07:42→20:18)
[2020-08-14] MEDS: HYDROcodone-ACET 5/325MG TAB PO PRN (07:59)
[2020-08-14 08:00] VITALS: BP 120/82
[2020-08-14] MEDS: cefTRIAXone 1GM/50ML D5W 50 ML IV SCH (08:00)
[2020-08-14] MEDS: PANTOPRAZOLE 40 MG/10 ML VIAL INJ IV SCH ×2 (09:46→21:34)
[2020-08-14] MEDS: DOXYCYCLINE 100 MG TAB/CAP PO SCH ×2 (09:46→21:34)
[2020-08-14] MEDS: DexAMETHasone SOD PHOS 10MG/1ML VIAL INJ IV SCH (09:46)
[2020-08-14] MEDS: FUROSEMIDE 40 MG/4 ML VIAL IV SCH (09:46)
[2020-08-14] MEDS: ZINC SULFATE 220mg CAP or TAB PO SCH (09:46)
[2020-08-14] MEDS: POTASSIUM CHL 20 Meq TABLET PO SCH (09:47)
[2020-08-14] MEDS: ENOXAPARIN SOD 40 MG/0.4 ML SYRINGE SC SCH ×2 (09:47→21:34)
[2020-08-14] MEDS: ASCORBIC ACID 1,000 MG TAB PO SCH (09:47)
[2020-08-14] MEDS: CHOLECALCIFEROL (VITD3) 2,000 UNIT CAP PO SCH (09:47)
[2020-08-14 10:02] LABS: Albumin 2.9 g/dL (3.4-5.0); BUN/Creatinine Ratio 43.7; Bilirubin, Total 0.6 mg/dL (0.2-1.0); CRP High Sensitivity 0.11 mg/dL (< 0.3); Calcium 9.2 mg/dL (8.5-10.1); Total Protein 6.5 g/dL (6.4-8.2)
[2020-08-14 16:00] VITALS: BP 122/79
[2020-08-14 20:18] VITALS: BP 122/79
[2020-08-15] VITALS: BP 134/77
[2020-08-15] MEDS: Glucerna Carbsteady SHAKE Vanilla 8oz PO SCH ×3 (05:41→21:38)
[2020-08-15] MEDS: ACCU-CHEK COMFORT CURVE STRIP VI SCH ×4 (06:35→21:38)
[2020-08-15] MEDS: InsuLIN REG 1unit/0.01ml Soln (100units/ml) SC SCH ×4 (06:37→21:55)
[2020-08-15] MEDS: ALBUTEROL SULF HFA 90MCG INH 200DOSE IN PRN ×2 (09:39→22:40)
[2020-08-15] MEDS: BUDESONIDE (INHALATION) 180 MCG IH IN SCH ×2 (09:39→22:40)
[2020-08-15] MEDS: cefTRIAXone 1GM/50ML D5W 50 ML IV SCH (09:51)
[2020-08-15] MEDS: DOXYCYCLINE 100 MG TAB/CAP PO SCH ×2 (09:52→21:47)
[2020-08-15] MEDS: CHOLECALCIFEROL (VITD3) 2,000 UNIT CAP PO SCH (09:52)
[2020-08-15] MEDS: POTASSIUM CHL 20 Meq TABLET PO SCH (09:52)
[2020-08-15] MEDS: ENOXAPARIN SOD 40 MG/0.4 ML SYRINGE SC SCH ×2 (09:52→21:46)
[2020-08-15] MEDS: ASCORBIC ACID 1,000 MG TAB PO SCH (09:52)
[2020-08-15] MEDS: DexAMETHasone SOD PHOS 10MG/1ML VIAL INJ IV SCH (09:52)
[2020-08-15] MEDS: ZINC SULFATE 220mg CAP or TAB PO SCH (09:52)
[2020-08-15] MEDS: PANTOPRAZOLE 40 MG/10 ML VIAL INJ IV SCH ×2 (10:00→21:48)
[2020-08-15] MEDS: FUROSEMIDE 40 MG/4 ML VIAL IV SCH (10:00)
[2020-08-15] MEDS: ACETAMINOPHEN 500 MG TAB PO PRN (13:55)
[2020-08-15 16:00] VITALS: BP 112/60
[2020-08-15 23:57] VITALS: BP 136/86
[2020-08-16] MEDS: LORazepam 2MG/ML-1ML VIAL IV PRN ×2 (01:46→22:12)
[2020-08-16] MEDS: Glucerna Carbsteady SHAKE Vanilla 8oz PO SCH ×3 (05:40→21:55)
[2020-08-16] MEDS: ACCU-CHEK COMFORT CURVE STRIP VI SCH ×4 (06:19→21:54)
[2020-08-16] MEDS: InsuLIN REG 1unit/0.01ml Soln (100units/ml) SC SCH ×4 (06:19→21:52)
[2020-08-16 08:00] VITALS: BP 122/83
[2020-08-16 09:24] LABS: Hematocrit 42.5 % (36.0-46.0); Hemoglobin 14.2 g/dL (12.2-16.2); Mean Corpuscular Hemoglobin 27.8 pg (28.0-32.0); Mean Corpuscular Hgb Conc. 33.3 g/dL (32.0-36.0); Mean Corpuscular Volume 83.3 fL (80.0-100.0); Platelet Count (auto) 214 10^3/uL (140-450); Red Blood Cells 5.11 10^6/uL (4.0-5.20); White Blood Cell 11.1 10^3/uL (4.4-10.8)
[2020-08-16 09:41] LABS: Basophils % (manual) 0 (0.0-2.0); Blast Cells 0; Myelocytes % 0; Promyelocytes % 0; Reactive Lymphocytes 0
[2020-08-16] MEDS: cefTRIAXone 1GM/50ML D5W 50 ML IV SCH (09:47)
[2020-08-16] MEDS: PANTOPRAZOLE 40 MG/10 ML VIAL INJ IV SCH ×2 (09:50→21:55)
[2020-08-16] MEDS: DOXYCYCLINE 100 MG TAB/CAP PO SCH ×2 (09:51→21:54)
[2020-08-16] MEDS: ASCORBIC ACID 1,000 MG TAB PO SCH (09:51)
[2020-08-16] MEDS: DexAMETHasone SOD PHOS 10MG/1ML VIAL INJ IV SCH (09:51)
[2020-08-16] MEDS: POTASSIUM CHL 20 Meq TABLET PO SCH (09:51)
[2020-08-16] MEDS: ENOXAPARIN SOD 40 MG/0.4 ML SYRINGE SC SCH ×2 (09:51→21:54)
[2020-08-16] MEDS: FUROSEMIDE 40 MG/4 ML VIAL IV SCH (09:51)
[2020-08-16] MEDS: CHOLECALCIFEROL (VITD3) 2,000 UNIT CAP PO SCH (09:52)
[2020-08-16] MEDS: ZINC SULFATE 220mg CAP or TAB PO SCH (09:53)
[2020-08-16] MEDS: BUDESONIDE (INHALATION) 180 MCG IH IN SCH ×2 (10:00→18:35)
[2020-08-16 10:02] LABS: BUN/Creatinine Ratio 47.4; Calcium 9.3 mg/dL (8.5-10.1); Potassium 4.1 mmol/L (3.5-5.1)
[2020-08-16 13:43] LABS: Band Neutrophils % (manual) 8; Eosinophils % (manual) 3 (0-7); Lymphocytes % (manual) 13 (10.0-50.0); Metamyelocytes % 2; Monocytes % (manual) 5 (0-12)
[2020-08-16 16:00] VITALS: BP 115/78
[2020-08-16 20:00] VITALS: BP 132/78
[2020-08-17] VITALS (72 sets, daily range): BP systolic 62–136; BP diastolic 38–87
[2020-08-17] MEDS: ONDANSETRON HCL 4 MG/2 ML VIAL IV PRN (01:17)
[2020-08-17] MEDS ORDERED: ETOMIDATE (2MG/ML) 20ML VIAL IV ONE ×4 (05:00→06:45)
[2020-08-17] MEDS: SUCCINYLCHOLINE CHLORIDE 20 MG/ML 10ML VIAL IV ONE ×2 (05:48→06:02)
[2020-08-17] MEDS: ETOMIDATE (2MG/ML) 20ML VIAL IV ONE ×2 (05:49→06:01)
[2020-08-17] MEDS: Glucerna Carbsteady SHAKE Vanilla 8oz PO SCH (06:00)
[2020-08-17] MEDS ORDERED: MIDAZOLAM DRIP 50 mg/50mL 50 ML IV ONE ×3 (06:20→08:26)
[2020-08-17] MEDS ORDERED: SUCCINYLCHOLINE CHLORIDE 20 MG/ML 10ML VIAL IV ONE ×2 (06:30→06:45)
[2020-08-17] MEDS: InsuLIN REG 1unit/0.01ml Soln (100units/ml) SC SCH ×4 (06:32→22:00)
[2020-08-17] MEDS: ACCU-CHEK COMFORT CURVE STRIP VI SCH ×4 (06:42→22:00)
[2020-08-17] MEDS ORDERED: PROPOFOL 100 ML IV ONE ×2 (06:47→08:26)
[2020-08-17] MEDS: MIDAZOLAM DRIP 50 mg/50mL 50 ML IV SCH ×4 (07:00→22:47)
[2020-08-17] MEDS ORDERED: SODIUM CHLORIDE 0.9% 1,000 ML IV SCH (07:15)
[2020-08-17] MEDS ORDERED: ACETAMINOPHEN 650 mg PER 20.3 mL UD GT PRN (07:15)
[2020-08-17] MEDS: PROPOFOL 100 ML IV SCH ×2 (07:15→17:25)
[2020-08-17] MEDS ORDERED: SODIUM CHLORIDE 0.9% 500 ML IV ONE (07:45)
[2020-08-17] MEDS: cefTRIAXone 1GM/50ML D5W 50 ML IV SCH (09:00)
[2020-08-17] MEDS ORDERED: POTASSIUM EFFERVESENT TAB 25 MEQ PO SCH (10:00)
[2020-08-17] MEDS: CHOLECALCIFEROL (VITD3) 2,000 UNIT CAP PO SCH (10:00)
[2020-08-17] MEDS: PANTOPRAZOLE 40 MG/10 ML VIAL INJ IV SCH ×2 (10:00→22:00)
[2020-08-17] MEDS: ZINC SULFATE 220mg CAP or TAB PO SCH (10:00)
[2020-08-17] MEDS: DexAMETHasone SOD PHOS 10MG/1ML VIAL INJ IV SCH (10:00)
[2020-08-17] MEDS: ASCORBIC ACID 1,000 MG TAB PO SCH (10:00)
[2020-08-17] MEDS: BUDESONIDE (INHALATION) 0.5 MG/2 ML NEB NEB SCH ×2 (11:05→22:00)
[2020-08-17] MEDS: ALBUTEROL SULF 2.5 MG/0.5ML(0.5%) NEB SOLN NEB PRN (11:05)
[2020-08-17] MEDS: fentaNYL Drip 2500mCg/250mlNS 250 ML IV SCH ×2 (11:15→22:48)
[2020-08-17] MEDS ORDERED: fentaNYL Drip 2500mCg/250mlNS 250 ML IV ONE (11:21)
[2020-08-17 12:23] LABS: INR 1.05 (0.9-1.15)
[2020-08-17] MEDS: NOREPINEPHRINE 8 MG/250ML KIT 250 ML IV SCH (14:00)
[2020-08-17] MEDS ORDERED: NOREPINEPHRINE 8 MG/250ML KIT 250 ML IV ONE (14:11)
[2020-08-17] MEDS: SODIUM CHLOR 0.9% PF (SALINE LOCK) 10ML VIAL/SYR IV SCH (22:00)
[2020-08-17] MEDS: ENOXAPARIN SOD 80 MG/0.8ML SYRINGE SC SCH (22:00)
[2020-08-18] VITALS (95 sets, daily range): BP systolic 87–181; BP diastolic 41–104
[2020-08-18] MEDS: PROPOFOL 100 ML IV SCH ×2 (00:33→22:21)
[2020-08-18] MEDS: MIDAZOLAM DRIP 50 mg/50mL 50 ML IV SCH ×5 (04:33→22:23)
[2020-08-18] MEDS: NOREPINEPHRINE 8 MG/250ML KIT 250 ML IV SCH (04:34)
[2020-08-18] MEDS: BUDESONIDE (INHALATION) 0.5 MG/2 ML NEB NEB SCH ×2 (06:35→22:00)
[2020-08-18] MEDS: ALBUTEROL SULF 2.5 MG/0.5ML(0.5%) NEB SOLN NEB PRN ×2 (06:35→14:03)
[2020-08-18 07:20] LABS: Hematocrit 41.9 % (36.0-46.0); Hemoglobin 13.8 g/dL (12.2-16.2); Mean Corpuscular Hemoglobin 27.9 pg (28.0-32.0); Mean Corpuscular Hgb Conc. 32.9 g/dL (32.0-36.0); Mean Corpuscular Volume 84.7 fL (80.0-100.0); Platelet Count (auto) 182 10^3/uL (140-450); Red Blood Cells 4.95 10^6/uL (4.0-5.20); Red Cell Distribution Width 15.2 % (11.8-14.3); White Blood Cell 20.1 10^3/uL (4.4-10.8)
[2020-08-18] MEDS: ACCU-CHEK COMFORT CURVE STRIP VI SCH ×3 (07:28→17:57)
[2020-08-18] MEDS: InsuLIN REG 1unit/0.01ml Soln (100units/ml) SC SCH ×3 (07:28→18:00)
[2020-08-18 07:41] LABS: Albumin 2.6 g/dL (3.4-5.0); BUN/Creatinine Ratio 29.8; Calcium 8.6 mg/dL (8.5-10.1); Potassium 4.6 mmol/L (3.5-5.1)
[2020-08-18 07:43] LABS: Bilirubin, Total 0.5 mg/dL (0.2-1.0); Total Protein 5.7 g/dL (6.4-8.2)
[2020-08-18 08:02] LABS: Basophils % (manual) 0 (0.0-2.0); Blast Cells 0; Eosinophils % (manual) 0 (0-7); Metamyelocytes % 0; Myelocytes % 0; Promyelocytes % 0; Reactive Lymphocytes 0
[2020-08-18] MEDS: DexAMETHasone SOD PHOS 10MG/1ML VIAL INJ IV SCH (09:40)
[2020-08-18] MEDS: cefTRIAXone 1GM/50ML D5W 50 ML IV SCH (09:40)
[2020-08-18] MEDS: SODIUM CHLOR 0.9% PF (SALINE LOCK) 10ML VIAL/SYR IV SCH ×2 (09:41→22:32)
[2020-08-18] MEDS: ZINC SULFATE 220mg CAP or TAB PO SCH (09:48)
[2020-08-18] MEDS: ASCORBIC ACID 1,000 MG TAB PO SCH (09:49)
[2020-08-18] MEDS: ENOXAPARIN SOD 80 MG/0.8ML SYRINGE SC SCH ×2 (09:50→22:00)
[2020-08-18] MEDS: CHOLECALCIFEROL (VITD3) 2,000 UNIT CAP PO SCH (09:50)
[2020-08-18] MEDS ORDERED: POTASSIUM EFFERVESENT TAB 25 MEQ PO SCH (10:00)
[2020-08-18] MEDS ORDERED: FUROSEMIDE 20 MG/2 ML VIAL IV SCH (10:00)
[2020-08-18] MEDS ORDERED: AZITHROMYCIN 500MG/ 250ML 250 ML IV SCH (10:00)
[2020-08-18] MEDS: fentaNYL Drip 2500mCg/250mlNS 250 ML IV SCH ×2 (10:18→23:38)
[2020-08-18] MEDS ORDERED: FAMOTIDINE (10MG/ML) 2ML VL IV ONE (10:30)
[2020-08-18] MEDS ORDERED: METOCLOPRAMIDE HCL 5MG/ml INJ 2ml VIAL IV ONE (11:30)
[2020-08-18] MEDS: SODIUM CHLORIDE 0.9% 1,000 ML IV SCH (11:30)
[2020-08-18] MEDS ORDERED: PIPERACILLIN-TAZOB 3.375GM 100 ML IV ONE (11:30)
[2020-08-18] MEDS ORDERED: DEXTROSE (50%) 50ML SYRG IV PRN (11:30)
[2020-08-18] MEDS ORDERED: Glucerna 1.2 Cal 1Liter BOTTLE GT SCH (11:30)
[2020-08-18] MEDS ORDERED: ERGOCALCIFEROL 50,000 UNIT(1.25MG) CAP PO SCH (11:45)
[2020-08-18] MEDS ORDERED: ERGOCALCIFEROL 50,000 UNIT(1.25MG) CAP PO ONE (12:30)
[2020-08-18] MEDS: METOCLOPRAMIDE HCL 5MG/ml INJ 2ml VIAL IV SCH ×2 (14:00→22:25)
[2020-08-18 14:40] LABS: Band Neutrophils % (manual) 26; Lymphocytes % (manual) 6 (10.0-50.0); Monocytes % (manual) 2 (0-12)
[2020-08-18] MEDS: FAMOTIDINE (10MG/ML) 2ML VL IV SCH (22:24)
[2020-08-18] MEDS: PIPERACILLIN-TAZOB 3.375GM 100 ML IV SCH (22:33)
[2020-08-18] MEDS: INSULIN LANTUS (GLARGINE) 1 /0.01ml (100units/ml) SC SCH (22:34)
[2020-08-19] VITALS (98 sets, daily range): BP systolic 89–147; BP diastolic 46–82
[2020-08-19] MEDS: ALBUTEROL SULF 2.5 MG/0.5ML(0.5%) NEB SOLN NEB PRN ×3 (01:13→19:19)
[2020-08-19] MEDS: MIDAZOLAM DRIP 50 mg/50mL 50 ML IV SCH ×3 (02:00→14:11)
[2020-08-19 03:03] LABS: Basophils # (auto) 0 10 ^3/uL (0-0.2); Basophils % (auto) 0.2 % (0.0-2.0); Eosinophils # (auto) 0 10 ^3/uL (0-0.8); Hemoglobin 12.7 g/dL (12.2-16.2); Lymphocytes # (auto) 0.9 10 ^3/uL (0.4-5.4); Lymphocytes % (auto) 6.2 % (10.0-50.0); Mean Corpuscular Hemoglobin 28.3 pg (28.0-32.0); Mean Corpuscular Hgb Conc. 33.4 g/dL (32.0-36.0); Mean Corpuscular Volume 84.7 fL (80.0-100.0); Monocytes # (auto) 0 10 ^3/uL (0-1.3); Monocytes % (auto) 0.2 % (0.0-12.0); Neutrophils # (auto) 13.2 10 ^3/uL (1.6-8.6); Neutrophils % (auto) 93.4 % (37.0-80.0); Platelet Count (auto) 152 10^3/uL (140-450); Red Blood Cells 4.49 10^6/uL (4.0-5.20); Red Cell Distribution Width 15.1 % (11.8-14.3); White Blood Cell 14.1 10^3/uL (4.4-10.8)
[2020-08-19] MEDS: InsuLIN REG 1unit/0.01ml Soln (100units/ml) SC SCH ×4 (03:07→17:49)
[2020-08-19] MEDS: PROPOFOL 100 ML IV SCH ×2 (03:09→08:31)
[2020-08-19 03:16] LABS: INR 0.99 (0.9-1.15)
[2020-08-19 03:24] LABS: BUN/Creatinine Ratio 36.9; Calcium 8.3 mg/dL (8.5-10.1); Potassium 4.3 mmol/L (3.5-5.1)
[2020-08-19] MEDS: ACCU-CHEK COMFORT CURVE STRIP VI SCH ×4 (06:00→17:49)
[2020-08-19] MEDS: METOCLOPRAMIDE HCL 5MG/ml INJ 2ml VIAL IV SCH ×3 (06:00→21:19)
[2020-08-19] MEDS: PIPERACILLIN-TAZOB 3.375GM 100 ML IV SCH ×3 (06:00→21:19)
[2020-08-19] MEDS: BUDESONIDE (INHALATION) 0.5 MG/2 ML NEB NEB SCH ×2 (07:28→19:19)
[2020-08-19] MEDS: SODIUM CHLORIDE 0.9% 1,000 ML IV SCH (07:30)
[2020-08-19] MEDS: DexAMETHasone SOD PHOS 10MG/1ML VIAL INJ IV SCH (08:44)
[2020-08-19] MEDS: FAMOTIDINE (10MG/ML) 2ML VL IV SCH ×2 (08:44→21:19)
[2020-08-19] MEDS: CHOLECALCIFEROL (VITD3) 2,000 UNIT CAP PO SCH ×2 (08:45→10:00)
[2020-08-19] MEDS: ZINC SULFATE 220mg CAP or TAB PO SCH ×2 (08:45→10:00)
[2020-08-19] MEDS: ASCORBIC ACID 1,000 MG TAB PO SCH ×2 (08:45→10:00)
[2020-08-19] MEDS: SODIUM CHLOR 0.9% PF (SALINE LOCK) 10ML VIAL/SYR IV SCH ×2 (08:45→21:19)
[2020-08-19] MEDS: ENOXAPARIN SOD 80 MG/0.8ML SYRINGE SC SCH ×2 (08:47→21:19)
[2020-08-19] MEDS: NOREPINEPHRINE 8 MG/250ML KIT 250 ML IV SCH ×2 (11:12→16:08)
[2020-08-19] MEDS ORDERED: PANTOPRAZOLE 40 MG/10 ML VIAL INJ IV ONE (11:15)
[2020-08-19 13:33] LABS: INR 1.07 (0.9-1.15); Partial Thromboplastin Time 23.1 sec (23.0-31.2)
[2020-08-19] MEDS: fentaNYL Drip 2500mCg/250mlNS 250 ML IV SCH (14:14)
[2020-08-19] MEDS: INSULIN LANTUS (GLARGINE) 1 /0.01ml (100units/ml) SC SCH (21:42)
[2020-08-19] MEDS ORDERED: PANTOPRAZOLE 40 MG/10 ML VIAL INJ IV SCH (22:00)
[2020-08-20] VITALS (92 sets, daily range): BP systolic 89–136; BP diastolic 45–69
[2020-08-20 01:56] LABS: Basophils # (auto) 0.1 10 ^3/uL (0-0.2); Basophils % (auto) 1.2 % (0.0-2.0); Eosinophils # (auto) 0 10 ^3/uL (0-0.8); Eosinophils % (auto) 0.1 % (0.0-7.0); Hematocrit 34.1 % (36.0-46.0); Hemoglobin 11.4 g/dL (12.2-16.2); Lymphocytes # (auto) 0.6 10 ^3/uL (0.4-5.4); Mean Corpuscular Hemoglobin 27.9 pg (28.0-32.0); Mean Corpuscular Hgb Conc. 33.4 g/dL (32.0-36.0); Mean Corpuscular Volume 83.6 fL (80.0-100.0); Monocytes # (auto) 0.3 10 ^3/uL (0-1.3); Neutrophils % (auto) 86.7 % (37.0-80.0); Nucleated Red Blood Cells % 0.1 %; Platelet Count (auto) 143 10^3/uL (140-450); Red Blood Cells 4.08 10^6/uL (4.0-5.20); Red Cell Distribution Width 15.2 % (11.8-14.3)
[2020-08-20 02:11] LABS: Albumin 2.3 g/dL (3.4-5.0); Calcium 8.6 mg/dL (8.5-10.1)
[2020-08-20 02:13] LABS: BUN/Creatinine Ratio 35.6
[2020-08-20 02:15] LABS: Bilirubin, Total 0.6 mg/dL (0.2-1.0); Total Protein 5.2 g/dL (6.4-8.2)
[2020-08-20] MEDS: SODIUM CHLORIDE 0.9% 1,000 ML IV SCH ×2 (03:30→23:30)
[2020-08-20] MEDS: InsuLIN REG 1unit/0.01ml Soln (100units/ml) SC SCH ×5 (05:31→23:54)
[2020-08-20] MEDS: ACCU-CHEK COMFORT CURVE STRIP VI SCH ×5 (05:33→23:56)
[2020-08-20] MEDS: METOCLOPRAMIDE HCL 5MG/ml INJ 2ml VIAL IV SCH ×3 (05:36→21:29)
[2020-08-20] MEDS: PIPERACILLIN-TAZOB 3.375GM 100 ML IV SCH ×3 (06:00→22:00)
[2020-08-20] MEDS: BUDESONIDE (INHALATION) 0.5 MG/2 ML NEB NEB SCH ×2 (07:30→18:50)
[2020-08-20] MEDS: ASCORBIC ACID 1,000 MG TAB PO SCH (08:35)
[2020-08-20] MEDS: DexAMETHasone SOD PHOS 10MG/1ML VIAL INJ IV SCH (08:35)
[2020-08-20] MEDS: ZINC SULFATE 220mg CAP or TAB PO SCH (08:35)
[2020-08-20] MEDS: ENOXAPARIN SOD 80 MG/0.8ML SYRINGE SC SCH (08:35)
[2020-08-20] MEDS: CHOLECALCIFEROL (VITD3) 2,000 UNIT CAP PO SCH (08:35)
[2020-08-20] MEDS: SODIUM CHLOR 0.9% PF (SALINE LOCK) 10ML VIAL/SYR IV SCH ×2 (08:35→21:29)
[2020-08-20] MEDS: MIDAZOLAM DRIP 50 mg/50mL 50 ML IV SCH (09:39)
[2020-08-20] MEDS: FAMOTIDINE (10MG/ML) 2ML VL IV SCH ×2 (10:45→21:29)
[2020-08-20] MEDS: PROPOFOL 100 ML IV SCH (13:28)
[2020-08-20] MEDS: ERGOCALCIFEROL 50,000 UNIT(1.25MG) CAP PO SCH (15:45)
[2020-08-20] MEDS: ALBUTEROL SULF 2.5 MG/0.5ML(0.5%) NEB SOLN NEB PRN (18:50)
[2020-08-20] MEDS: INSULIN LANTUS (GLARGINE) 1 /0.01ml (100units/ml) SC SCH (21:50)
[2020-08-21] VITALS (99 sets, daily range): BP systolic 92–139; BP diastolic 48–86
[2020-08-21 04:27] LABS: Basophils # (auto) 0 10 ^3/uL (0-0.2); Basophils % (auto) 0.2 % (0.0-2.0); Eosinophils # (auto) 0 10 ^3/uL (0-0.8); Eosinophils % (auto) 0.1 % (0.0-7.0); Hematocrit 33.9 % (36.0-46.0); Hemoglobin 11.2 g/dL (12.2-16.2); Lymphocytes # (auto) 0.6 10 ^3/uL (0.4-5.4); Lymphocytes % (auto) 7.7 % (10.0-50.0); Mean Corpuscular Hemoglobin 27.9 pg (28.0-32.0); Mean Corpuscular Hgb Conc. 32.9 g/dL (32.0-36.0); Mean Corpuscular Volume 84.7 fL (80.0-100.0); Monocytes # (auto) 0.2 10 ^3/uL (0-1.3); Neutrophils # (auto) 7.5 10 ^3/uL (1.6-8.6); Nucleated Red Blood Cells % 0.2 %; Platelet Count (auto) 116 10^3/uL (140-450); Red Blood Cells 4.01 10^6/uL (4.0-5.20); Red Cell Distribution Width 15.6 % (11.8-14.3); White Blood Cell 8.3 10^3/uL (4.4-10.8)
[2020-08-21 04:53] LABS: Potassium 4.1 mmol/L (3.5-5.1)
[2020-08-21 05:02] LABS: BUN/Creatinine Ratio 39.7; Calcium 8.5 mg/dL (8.5-10.1)
[2020-08-21] MEDS: METOCLOPRAMIDE HCL 5MG/ml INJ 2ml VIAL IV SCH ×3 (05:36→21:29)
[2020-08-21] MEDS: PIPERACILLIN-TAZOB 3.375GM 100 ML IV SCH ×3 (05:36→22:00)
[2020-08-21] MEDS: ACCU-CHEK COMFORT CURVE STRIP VI SCH ×4 (05:42→23:21)
[2020-08-21] MEDS: InsuLIN REG 1unit/0.01ml Soln (100units/ml) SC SCH ×4 (05:42→23:19)
[2020-08-21] MEDS: BUDESONIDE (INHALATION) 0.5 MG/2 ML NEB NEB SCH ×2 (06:20→22:09)
[2020-08-21] MEDS: ALBUTEROL SULF 2.5 MG/0.5ML(0.5%) NEB SOLN NEB PRN ×2 (06:20→22:09)
[2020-08-21] MEDS: DexAMETHasone SOD PHOS 10MG/1ML VIAL INJ IV SCH (09:27)
[2020-08-21] MEDS: ZINC SULFATE 220mg CAP or TAB PO SCH (09:28)
[2020-08-21] MEDS: FAMOTIDINE (10MG/ML) 2ML VL IV SCH ×2 (09:28→21:29)
[2020-08-21] MEDS: SODIUM CHLOR 0.9% PF (SALINE LOCK) 10ML VIAL/SYR IV SCH ×2 (09:28→21:29)
[2020-08-21] MEDS: ASCORBIC ACID 1,000 MG TAB PO SCH (09:29)
[2020-08-21] MEDS: CHOLECALCIFEROL (VITD3) 2,000 UNIT CAP PO SCH (09:29)
[2020-08-21] MEDS: fentaNYL Drip 2500mCg/250mlNS 250 ML IV SCH (11:15)
[2020-08-21] MEDS ORDERED: MAGNESIUM CITRATE SOLUTION 300 ML BTL PO ONE (11:30)
[2020-08-21] MEDS: NOREPINEPHRINE 8 MG/250ML KIT 250 ML IV SCH (14:00)
[2020-08-21] MEDS: INSULIN LANTUS (GLARGINE) 1 /0.01ml (100units/ml) SC SCH (21:18)
[2020-08-22] VITALS (101 sets, daily range): BP systolic 91–121; BP diastolic 45–59
[2020-08-22 03:51] LABS: Hematocrit 31.4 % (36.0-46.0); Hemoglobin 10.4 g/dL (12.2-16.2); Mean Corpuscular Hemoglobin 28.2 pg (28.0-32.0); Mean Corpuscular Hgb Conc. 33.2 g/dL (32.0-36.0); Platelet Count (auto) 97 10^3/uL (140-450); Red Cell Distribution Width 15.8 % (11.8-14.3); White Blood Cell 5.2 10^3/uL (4.4-10.8)
[2020-08-22 04:09] LABS: Basophils % (manual) 0 (0.0-2.0); Blast Cells 0; Eosinophils % (manual) 0 (0-7); Myelocytes % 0; Promyelocytes % 0; Reactive Lymphocytes 0
[2020-08-22 04:11] LABS: Calcium 8.5 mg/dL (8.5-10.1); Potassium 4.1 mmol/L (3.5-5.1)
[2020-08-22 05:44] LABS: Band Neutrophils % (manual) 30; Lymphocytes % (manual) 20 (10.0-50.0); Metamyelocytes % 2; Monocytes % (manual) 8 (0-12)
[2020-08-22] MEDS: METOCLOPRAMIDE HCL 5MG/ml INJ 2ml VIAL IV SCH ×3 (05:57→22:05)
[2020-08-22] MEDS: ACCU-CHEK COMFORT CURVE STRIP VI SCH ×4 (05:58→23:52)
[2020-08-22] MEDS: InsuLIN REG 1unit/0.01ml Soln (100units/ml) SC SCH ×4 (05:59→23:53)
[2020-08-22] MEDS: PIPERACILLIN-TAZOB 3.375GM 100 ML IV SCH ×3 (06:00→22:05)
[2020-08-22] MEDS: INSULIN LANTUS (GLARGINE) 1 /0.01ml (100units/ml) SC SCH ×2 (08:45→22:05)
[2020-08-22] MEDS: SODIUM CHLOR 0.9% PF (SALINE LOCK) 10ML VIAL/SYR IV SCH ×2 (08:48→22:05)
[2020-08-22] MEDS: FAMOTIDINE (10MG/ML) 2ML VL IV SCH ×2 (08:48→22:05)
[2020-08-22] MEDS: ZINC SULFATE 220mg CAP or TAB PO SCH (08:48)
[2020-08-22] MEDS: DexAMETHasone SOD PHOS 10MG/1ML VIAL INJ IV SCH (08:48)
[2020-08-22] MEDS: ASCORBIC ACID 1,000 MG TAB PO SCH (08:48)
[2020-08-22] MEDS: PROPOFOL 100 ML IV SCH ×2 (08:49→20:00)
[2020-08-22] MEDS: MIDAZOLAM DRIP 50 mg/50mL 50 ML IV SCH (08:49)
[2020-08-22] MEDS: CHOLECALCIFEROL (VITD3) 2,000 UNIT CAP PO SCH (08:49)
[2020-08-22] MEDS: BUDESONIDE (INHALATION) 0.5 MG/2 ML NEB NEB SCH ×2 (10:00→19:13)
[2020-08-22] MEDS: fentaNYL Drip 2500mCg/250mlNS 250 ML IV SCH (10:18)
[2020-08-22] MEDS: ALBUTEROL SULF 2.5 MG/0.5ML(0.5%) NEB SOLN NEB PRN ×2 (10:37→19:14)
[2020-08-22] MEDS ORDERED: ROCURONIUM 10MG/ML 10ML VIAL IV ONE ×3 (12:06→15:00)
[2020-08-22] MEDS ORDERED: SODIUM BICARBONATE 8.4 % INJ 50ML VIAL IV ONE ×2 (13:00→13:11)
[2020-08-22] MEDS: NOREPINEPHRINE 8 MG/250ML KIT 250 ML IV SCH (13:08)
[2020-08-23] VITALS (94 sets, daily range): BP systolic 87–135; BP diastolic 5–63
[2020-08-23] MEDS: fentaNYL Drip 2500mCg/250mlNS 250 ML IV SCH ×2 (01:13→14:30)
[2020-08-23] MEDS: PIPERACILLIN-TAZOB 3.375GM 100 ML IV SCH ×3 (05:44→20:42)
[2020-08-23] MEDS: MIDAZOLAM DRIP 50 mg/50mL 50 ML IV SCH ×4 (05:44→20:42)
[2020-08-23] MEDS: METOCLOPRAMIDE HCL 5MG/ml INJ 2ml VIAL IV SCH ×3 (05:45→20:42)
[2020-08-23] MEDS: ACCU-CHEK COMFORT CURVE STRIP VI SCH ×4 (06:00→23:29)
[2020-08-23] MEDS: InsuLIN REG 1unit/0.01ml Soln (100units/ml) SC SCH ×3 (06:00→17:05)
[2020-08-23 06:14] LABS: Hemoglobin 9.8 g/dL (12.2-16.2); Mean Corpuscular Hemoglobin 28.7 pg (28.0-32.0); Mean Corpuscular Hgb Conc. 33.8 g/dL (32.0-36.0); Platelet Count (auto) 99 10^3/uL (140-450); Red Blood Cells 3.41 10^6/uL (4.0-5.20); Red Cell Distribution Width 16.3 % (11.8-14.3); White Blood Cell 8.5 10^3/uL (4.4-10.8)
[2020-08-23] MEDS: ROCURONIUM 10MG/ML 10ML VIAL IV PRN (06:15)
[2020-08-23 06:31] LABS: Potassium 4.5 mmol/L (3.5-5.1)
[2020-08-23] MEDS: BUDESONIDE (INHALATION) 0.5 MG/2 ML NEB NEB SCH ×2 (06:35→20:32)
[2020-08-23] MEDS: ALBUTEROL SULF 2.5 MG/0.5ML(0.5%) NEB SOLN NEB PRN ×2 (06:35→20:34)
[2020-08-23 06:39] LABS: BUN/Creatinine Ratio 57.3; Calcium 8.6 mg/dL (8.5-10.1)
[2020-08-23 07:24] LABS: Basophils % (manual) 0 (0.0-2.0); Promyelocytes % 0
[2020-08-23 07:25] LABS: Blast Cells 0; Reactive Lymphocytes 0
[2020-08-23] MEDS: PROPOFOL 100 ML IV SCH ×3 (07:55→17:00)
[2020-08-23] MEDS: SODIUM CHLOR 0.9% PF (SALINE LOCK) 10ML VIAL/SYR IV SCH ×2 (09:01→20:42)
[2020-08-23] MEDS: ZINC SULFATE 220mg CAP or TAB PO SCH (09:01)
[2020-08-23] MEDS: FAMOTIDINE (10MG/ML) 2ML VL IV SCH ×2 (09:01→20:42)
[2020-08-23] MEDS: ASCORBIC ACID 1,000 MG TAB PO SCH (09:02)
[2020-08-23] MEDS: CHOLECALCIFEROL (VITD3) 2,000 UNIT CAP PO SCH (09:02)
[2020-08-23] MEDS: INSULIN LANTUS (GLARGINE) 1 /0.01ml (100units/ml) SC SCH ×2 (09:03→20:45)
[2020-08-23] MEDS: DexAMETHasone SOD PHOS 10MG/1ML VIAL INJ IV SCH (09:04)
[2020-08-23 09:07] LABS: Band Neutrophils % (manual) 26; Eosinophils % (manual) 4 (0-7); Lymphocytes % (manual) 14 (10.0-50.0); Metamyelocytes % 5; Monocytes % (manual) 3 (0-12); Myelocytes % 3
[2020-08-23] MEDS: NOREPINEPHRINE 8 MG/250ML KIT 250 ML IV SCH ×2 (11:29→14:00)
[2020-08-23] MEDS ORDERED: FLUCONAZOLE 200MG/100ML 100 ML IV ONE (12:15)
[2020-08-23] MEDS ORDERED: TPN PER PHARMACY 0 ML IV SCH (12:15)
[2020-08-23 12:41] LABS: Albumin 1.9 g/dL (3.4-5.0)
[2020-08-23 12:48] LABS: Bilirubin, Direct 0.2 mg/dL (0-0.2); Bilirubin, Total 0.4 mg/dL (0.2-1.0); Phosphorus 3.4 mg/dL (2.5-4.90); Pre Albumin 27.9 mg/dL (20.0-40.0)
[2020-08-23] MEDS ORDERED: FUROSEMIDE 40 MG/4 ML VIAL IV ONE (17:45)
[2020-08-23] MEDS ORDERED: DEXTROSE (50%) 50ML SYRG IV SCH (18:00)
[2020-08-23] MEDS: TPN PER PHARMACY IV NR ×5 (20:00)
[2020-08-24] VITALS (99 sets, daily range): BP systolic 115–136; BP diastolic 51–69
[2020-08-24 03:38] LABS: Hematocrit 29.7 % (36.0-46.0); Hemoglobin 9.8 g/dL (12.2-16.2); Mean Corpuscular Hemoglobin 28.5 pg (28.0-32.0); Mean Corpuscular Volume 86.3 fL (80.0-100.0); Platelet Count (auto) 107 10^3/uL (140-450); Red Blood Cells 3.44 10^6/uL (4.0-5.20); White Blood Cell 9.3 10^3/uL (4.4-10.8)
[2020-08-24 03:57] LABS: Albumin 1.9 g/dL (3.4-5.0); Calcium 8.6 mg/dL (8.5-10.1); Magnesium 3.4 mg/dL (1.6-2.6); Potassium 4.3 mmol/L (3.5-5.1)
[2020-08-24 04:07] LABS: BUN/Creatinine Ratio 51.8; Bilirubin, Total 0.3 mg/dL (0.2-1.0); CRP High Sensitivity 16.8 mg/dL (< 0.3); Phosphorus 5.4 mg/dL (2.5-4.90); Total Protein 5.4 g/dL (6.4-8.2)
[2020-08-24 04:08] LABS: Basophils % (manual) 0 (0.0-2.0); Blast Cells 0; Monocytes % (manual) 0 (0-12); Promyelocytes % 0; Reactive Lymphocytes 0
[2020-08-24 04:36] LABS: Band Neutrophils % (manual) 47; Eosinophils % (manual) 1 (0-7); Lymphocytes % (manual) 8 (10.0-50.0); Metamyelocytes % 3; Myelocytes % 1
[2020-08-24] MEDS: PIPERACILLIN-TAZOB 3.375GM 100 ML IV SCH ×3 (05:29→22:00)
[2020-08-24] MEDS: ACCU-CHEK COMFORT CURVE STRIP VI SCH ×3 (05:29→18:28)
[2020-08-24] MEDS: METOCLOPRAMIDE HCL 5MG/ml INJ 2ml VIAL IV SCH ×3 (05:29→22:00)
[2020-08-24] MEDS: PROPOFOL 100 ML IV SCH ×5 (05:30→18:48)
[2020-08-24] MEDS: InsuLIN REG 1unit/0.01ml Soln (100units/ml) SC SCH ×4 (05:35→18:29)
[2020-08-24] MEDS: BUDESONIDE (INHALATION) 0.5 MG/2 ML NEB NEB SCH ×2 (07:11→22:00)
[2020-08-24] MEDS: MIDAZOLAM DRIP 50 mg/50mL 50 ML IV SCH ×4 (07:45→18:45)
[2020-08-24] MEDS: ALBUTEROL SULF 2.5 MG/0.5ML(0.5%) NEB SOLN NEB PRN ×2 (07:49→23:59)
[2020-08-24] MEDS ORDERED: MULTIPLE VITAMIN IV SCH ×10 (08:45→20:00)
[2020-08-24] MEDS ORDERED: [UNRECOGNIZED DRUG - OTHER] IV SCH ×10 (08:45→20:00)
[2020-08-24] MEDS ORDERED: TRACE MINERALS IV SCH ×10 (08:45→20:00)
[2020-08-24] MEDS: ASCORBIC ACID 1,000 MG TAB PO SCH (09:49)
[2020-08-24] MEDS: ZINC SULFATE 220mg CAP or TAB PO SCH (09:49)
[2020-08-24] MEDS: SODIUM CHLOR 0.9% PF (SALINE LOCK) 10ML VIAL/SYR IV SCH ×2 (09:49→22:00)
[2020-08-24] MEDS: CHOLECALCIFEROL (VITD3) 2,000 UNIT CAP PO SCH (09:49)
[2020-08-24] MEDS: FLUCONAZOLE 200MG/100ML 100 ML IV SCH (09:49)
[2020-08-24] MEDS: FAMOTIDINE (10MG/ML) 2ML VL IV SCH ×2 (09:49→22:00)
[2020-08-24] MEDS: DexAMETHasone SOD PHOS 4 MG/1ML SDV INJ IV SCH (09:49)
[2020-08-24] MEDS: INSULIN LANTUS (GLARGINE) 1 /0.01ml (100units/ml) SC SCH ×2 (09:50→22:00)
[2020-08-24] MEDS: fentaNYL Drip 2500mCg/250mlNS 250 ML IV SCH (12:15)
[2020-08-24] MEDS: NOREPINEPHRINE 8 MG/250ML KIT 250 ML IV SCH (14:00)
[2020-08-24] MEDS: ROCURONIUM 10MG/ML 10ML VIAL IV PRN (15:50)
[2020-08-24] MEDS: TPN PER PHARMACY IV NR ×5 (19:54)
[2020-08-25] VITALS (81 sets, daily range): BP systolic 53–132; BP diastolic 32–60
[2020-08-25 05:39] LABS: Hematocrit 27.3 % (36.0-46.0); Mean Corpuscular Hemoglobin 28.7 pg (28.0-32.0); Mean Corpuscular Hgb Conc. 33.2 g/dL (32.0-36.0); Mean Corpuscular Volume 86.4 fL (80.0-100.0); Platelet Count (auto) 113 10^3/uL (140-450); Red Blood Cells 3.16 10^6/uL (4.0-5.20); Red Cell Distribution Width 16.8 % (11.8-14.3); White Blood Cell 7.3 10^3/uL (4.4-10.8)
[2020-08-25 05:40] LABS: Basophils % (manual) 0 (0.0-2.0); Blast Cells 0; Metamyelocytes % 0; Promyelocytes % 0; Reactive Lymphocytes 0
[2020-08-25] MEDS: ACCU-CHEK COMFORT CURVE STRIP VI SCH ×4 (05:40→17:45)
[2020-08-25] MEDS: InsuLIN REG 1unit/0.01ml Soln (100units/ml) SC SCH ×4 (05:42→18:01)
[2020-08-25] MEDS: PIPERACILLIN-TAZOB 3.375GM 100 ML IV SCH ×2 (05:53→13:50)
[2020-08-25] MEDS: METOCLOPRAMIDE HCL 5MG/ml INJ 2ml VIAL IV SCH ×2 (05:53→13:40)
[2020-08-25] MEDS: MIDAZOLAM DRIP 50 mg/50mL 50 ML IV SCH ×4 (05:53→17:00)
[2020-08-25 06:01] LABS: Albumin 1.6 g/dL (3.4-5.0); Calcium 8.6 mg/dL (8.5-10.1); Magnesium 3.3 mg/dL (1.6-2.6); Potassium 3.7 mmol/L (3.5-5.1)
[2020-08-25 06:06] LABS: BUN/Creatinine Ratio 54.6; Bilirubin, Total 0.3 mg/dL (0.2-1.0); Phosphorus 3.5 mg/dL (2.5-4.90); Total Protein 5.4 g/dL (6.4-8.2)
[2020-08-25] MEDS: ALBUTEROL SULF 2.5 MG/0.5ML(0.5%) NEB SOLN NEB PRN ×2 (06:10→14:02)
[2020-08-25] MEDS: BUDESONIDE (INHALATION) 0.5 MG/2 ML NEB NEB SCH (06:10)
[2020-08-25] MEDS: ROCURONIUM 10MG/ML 10ML VIAL IV PRN ×2 (06:16→10:48)
[2020-08-25 06:37] LABS: Band Neutrophils % (manual) 57; Eosinophils % (manual) 1 (0-7); Lymphocytes % (manual) 9 (10.0-50.0); Monocytes % (manual) 1 (0-12); Myelocytes % 1
[2020-08-25] MEDS: PROPOFOL 100 ML IV SCH ×2 (07:15→12:00)
[2020-08-25] MEDS: SODIUM CHLOR 0.9% PF (SALINE LOCK) 10ML VIAL/SYR IV SCH (09:45)
[2020-08-25] MEDS: ASCORBIC ACID 1,000 MG TAB PO SCH (10:00)
[2020-08-25] MEDS: ZINC SULFATE 220mg CAP or TAB PO SCH (10:00)
[2020-08-25] MEDS: CHOLECALCIFEROL (VITD3) 2,000 UNIT CAP PO SCH (10:00)
[2020-08-25] MEDS: DexAMETHasone SOD PHOS 4 MG/1ML SDV INJ IV SCH (10:45)
[2020-08-25] MEDS: INSULIN LANTUS (GLARGINE) 1 /0.01ml (100units/ml) SC SCH (10:45)
[2020-08-25] MEDS: FAMOTIDINE (10MG/ML) 2ML VL IV SCH (10:45)
[2020-08-25] MEDS: FLUCONAZOLE 200MG/100ML 100 ML IV SCH (10:56)
[2020-08-25] MEDS: fentaNYL Drip 2500mCg/250mlNS 250 ML IV SCH (10:58)
[2020-08-25] MEDS: NOREPINEPHRINE 8 MG/250ML KIT 250 ML IV SCH (13:38)
[2020-08-25] MEDS ORDERED: TPN PER PHARMACY IV NR ×6 (20:00)
[2020-08-25] MEDS ORDERED: VASOPRESSIN 20 UNIT/ML ONE (20:07)
[2020-08-25] MEDS ORDERED: EPINEPHrine HCL 250 ML IV ONE (20:34)
[2020-08-25] MEDS ORDERED: EPINEPHrine HCL 1 MG/10 ML SYRG IV ONE (21:35)
[2020-08-25] MEDS ORDERED: PHENYLEPHRINE IV 250 ML IV SCH (23:15)
[2020-08-25] MEDS ORDERED: EPINEPHrine HCL 250 ML IV SCH (23:15)
[2020-08-25] MEDS ORDERED: VASOPRESSIN 50 UNITS in D5W 5% 247.5 ML IV SCH (23:15)
== END 2020-08-25 21:36 | DRG 870 ==
LOC: EDSEX 22:58 → ER 22:58 → EDBD 22:58 → TELE 22:59 → TELE-EAST 08-01 17:41 → TELE-WESTW 08-05 12:58 → DOU IN ICU 08-17 08:52
PROVIDERS: ADMIT Nurse Practitioner Acute Care; ATTEND Internal Medicine
PROC: XW033E5 Introduction of Remdesivir Anti-infective into Peripheral Vein, Percutaneous Approach, New Technology Group 5 (ICD-10-PCS; 2020-08-03)
PROC: XW13325 Transfusion of Convalescent Plasma (Nonautologous) into Peripheral Vein, Percutaneous Approach, New Technology Group 5 (ICD-10-PCS; principal; 2020-08-04)
PROC: 5A09357 Assistance with Respiratory Ventilation, Less than 24 Consecutive Hours, Continuous Positive Airway Pressure (ICD-10-PCS; 2020-08-08)
PROC: 5A09357 Assistance with Respiratory Ventilation, Less than 24 Consecutive Hours, Continuous Positive Airway Pressure (ICD-10-PCS; 2020-08-09)
PROC: 5A09357 Assistance with Respiratory Ventilation, Less than 24 Consecutive Hours, Continuous Positive Airway Pressure (ICD-10-PCS; 2020-08-10)
PROC: 5A09357 Assistance with Respiratory Ventilation, Less than 24 Consecutive Hours, Continuous Positive Airway Pressure (ICD-10-PCS; 2020-08-11)
PROC: 5A09357 Assistance with Respiratory Ventilation, Less than 24 Consecutive Hours, Continuous Positive Airway Pressure (ICD-10-PCS; 2020-08-12)
PROC: 5A09357 Assistance with Respiratory Ventilation, Less than 24 Consecutive Hours, Continuous Positive Airway Pressure (ICD-10-PCS; 2020-08-13)
PROC: 5A09357 Assistance with Respiratory Ventilation, Less than 24 Consecutive Hours, Continuous Positive Airway Pressure (ICD-10-PCS; 2020-08-14)
PROC: 5A09357 Assistance with Respiratory Ventilation, Less than 24 Consecutive Hours, Continuous Positive Airway Pressure (ICD-10-PCS; 2020-08-15)
PROC: 5A09357 Assistance with Respiratory Ventilation, Less than 24 Consecutive Hours, Continuous Positive Airway Pressure (ICD-10-PCS; 2020-08-16)
PROC: 5A1955Z Respiratory Ventilation, Greater than 96 Consecutive Hours (ICD-10-PCS; 2020-08-17)
PROC: 0BH17EZ Insertion of Endotracheal Airway into Trachea, Via Natural or Artificial Opening (ICD-10-PCS; 2020-08-17)
PROC: 02HV33Z Insertion of Infusion Device into Superior Vena Cava, Percutaneous Approach (ICD-10-PCS; 2020-08-17)
PROC: 5A09357 Assistance with Respiratory Ventilation, Less than 24 Consecutive Hours, Continuous Positive Airway Pressure (ICD-10-PCS; 2020-08-17)
PROC: 5A09357 Assistance with Respiratory Ventilation, Less than 24 Consecutive Hours, Continuous Positive Airway Pressure (ICD-10-PCS; 2020-08-18)
DX: A41.89 Other specified sepsis (principal); J12.82 Pneumonia due to coronavirus disease 2019; J96.01 Acute respiratory failure with hypoxia; R65.21 Severe sepsis with septic shock; U07.1 COVID-19; D68.59 Other primary thrombophilia; D84.9 Immunodeficiency, unspecified; E44.0 Moderate protein-calorie malnutrition; J44.0 Chronic obstructive pulmonary disease with (acute) lower respiratory infection; J45.901 Unspecified asthma with (acute) exacerbation; N17.9 Acute kidney failure, unspecified; D69.6 Thrombocytopenia, unspecified; D89.839 Cytokine release syndrome, grade unspecified; E11.65 Type 2 diabetes mellitus with hyperglycemia; E55.9 Vitamin D deficiency, unspecified; E66.01 Morbid (severe) obesity due to excess calories; E87.6 Hypokalemia; Z68.36 Body mass index [BMI] 36.0-36.9, adult; Z79.84 Long term (current) use of oral hypoglycemic drugs; Z82.3 Family history of stroke; Z82.49 Family history of ischemic heart disease and other diseases of the circulatory system; Z86.74 Personal history of sudden cardiac arrest; Z87.891 Personal history of nicotine dependence
CPT/HCPCS: 36415; 36569; 36600; 71045; 80048; 80053; 80076; 81001; 82040; 82150; 82306; 82728; 82805; 82962; 83036; 83605; 83615; 83690; 83735; 83880; 84100; 84443; 84478; 84484; 85007; 85025; 85027; 85379; 85610; 85730; 86141; 86850; 86900; 86901; 87040; 87070; 87086; 87088; 87205; 87426; 87804; 93005; 93306; 93970; 94002; 94003; 94640; 94660; 99291; C9113; G0378; J0171; J0330; J0696; J1100; J1450; J1815; J2250; J2405; J2543; J2704; J3480; J3490; J7060; J7131